=== PATIENT | male | born 1955 | race Caucasian/White ===

== ENCOUNTER 2019-10-17 07:31 | Inpatient (IN) | payer MEDICAID, MEDICARE ==
[~2019-10-17] VITALS: Ht 165.1 cm; Wt 79.4 kg
[2019-10-17 07:33] VITALS: Ht 165.1 cm; Wt 79.4 kg
[2019-10-17 09:00] LABS: BASOPHIL % 0.5 % (0-2); PLATELET COUNT 140 x10^3mcL (130-400)
[2019-10-17 09:03] LABS: RED CELL DISTRIBUTION WIDTH 15.5 % (11.5-14.5)
[2019-10-17] MEDS ORDERED: PLAVIX75 M1 PO (09:19)
[2019-10-17] MEDS ORDERED: LASIX20 MG (09:20)
[2019-10-17] MEDS ORDERED: JANUVIA50 M1 PO (09:21)
[2019-10-17] MEDS ORDERED: COREG3.125 MG (09:22)
[2019-10-17] MEDS ORDERED: LIPITOR20 MG (09:22)
[2019-10-17 09:24] LABS: ALBUMIN 3.1 g/dL (3.4-5.0); BILIRUBIN TOTAL 0.6 mg/dL (0.20-1.00); CALCIUM 8.8 mg/dL (8.5-10.1); CARBON DIOXIDE 28.8 mmol/L (21-32); CREATININE SERUM 1.4 mg/dL (0.7-1.3); POTASSIUM SERUM 3.5 mmol/L (3.5-5.1); TOTAL PROTEIN, SERUM 6.7 g/dL (6.4-8.2)
[2019-10-17] MEDS ORDERED: ASPIRIN CHILDRE81 MG PO (09:24)
[2019-10-17] MEDS ORDERED: ALDACTONE25 MG (09:24)
[2019-10-17 09:53] LABS: microscopic required? NO
[2019-10-17 10:34] LABS: PHOSPHOROUS 3.2 mg/dL (2.5-4.9)
[2019-10-17 10:35] LABS: CHOLESTEROL/HDL RATIO 2.4
[2019-10-17 10:35] LABS: urine erythrocyte NEGATIVE (NEGATIVE)
[2019-10-17 10:43] LABS: T3 TOTAL 0.94 ng/mL
[2019-10-17 10:44] LABS: FREE T4 1.29 ng/dL (0.76-1.46); T4(THYROXINE) 8.7 ug/dL (4.7-13.3)
[2019-10-17 10:51] LABS: AMPHETAMINE QUAL UR NONE DETECTED (See below)
[2019-10-17 12:09] VITALS: BP 94/67
[2019-10-17 14:17] VITALS: BP 97/66
[2019-10-17 16:42] VITALS: BP 105/65
[2019-10-17 20:12] VITALS: BP 88/55
[2019-10-17 22:31] VITALS: BP 92/55
[2019-10-18] VITALS (7 sets, daily range): BP systolic 84–94; BP diastolic 50–65
[2019-10-18 09:00] LABS: BASOPHIL % 0.4 % (0-2); PLATELET COUNT 139 x10^3mcL (130-400)
[2019-10-18 09:36] LABS: RED CELL DISTRIBUTION WIDTH 15.4 % (11.5-14.5)
[2019-10-18 09:37] LABS: CALCIUM 8.5 mg/dL (8.5-10.1); CARBON DIOXIDE 28.8 mmol/L (21-32); CREATININE SERUM 1.4 mg/dL (0.7-1.3); POTASSIUM SERUM 4.1 mmol/L (3.5-5.1)
[2019-10-19] VITALS (12 sets, daily range): BP systolic 90–105; BP diastolic 51–69
[2019-10-19 11:02] LABS: BASOPHIL % 0.2 % (0-2)
[2019-10-19 11:05] LABS: CALCIUM 8.4 mg/dL (8.5-10.1); CARBON DIOXIDE 27.7 mmol/L (21-32); CHLORIDE SERUM 106 mmol/L (98-107); CREATININE SERUM 1.2 mg/dL (0.7-1.3); GFR1 > 60 mL/min; GLUCOSE SERUM 92 mg/dL (74-106); POTASSIUM SERUM 4.3 mmol/L (3.5-5.1); SODIUM SERUM 140 mmol/L (136-145)
[2019-10-19 11:07] LABS: PLATELET COUNT 121 x10^3mcL (130-400); RED CELL DISTRIBUTION WIDTH 15.5 % (11.5-14.5)
[2019-10-19 21:18] LABS: APPEARANCE FLUID HAZY; COLOR FLUID YELLOW; LYMPHOCYTE FLUID 87 %; MONOCYTE FLUID 10 %; RBC FLUID 573 /cumm; SOURCE FLUID PLEURAL; WBC FLUID 40 /cumm
[2019-10-20 05:07] VITALS: BP 98/63
[2019-10-20 08:50] VITALS: BP 97/66
[2019-10-20 09:18] LABS: BASOPHIL % 0.2 % (0-2)
[2019-10-20 09:25] LABS: PLATELET COUNT 129 x10^3mcL (130-400); RED CELL DISTRIBUTION WIDTH 15.7 % (11.5-14.5)
[2019-10-20 09:26] LABS: CALCIUM 8.8 mg/dL (8.5-10.1); CARBON DIOXIDE 28.1 mmol/L (21-32); CREATININE SERUM 1.4 mg/dL (0.7-1.3); MAGNESIUM 2.1 mg/dL (1.8-2.4); POTASSIUM SERUM 4.5 mmol/L (3.5-5.1)
[2019-10-20 10:08] VITALS: BP 97/66
[2019-10-20 13:01] VITALS: BP 103/73
[2019-10-20 17:07] VITALS: BP 95/67
[2019-10-20 20:55] VITALS: BP 91/58
[2019-10-21 05:51] VITALS: BP 90/54
[2019-10-21 06:15] VITALS: BP 94/62
[2019-10-21 07:17] VITALS: BP 89/63
[2019-10-21 12:21] VITALS: BP 89/63
[2019-10-21 12:44] VITALS: BP 103/65
== END 2019-10-21 13:37 | disposition home health service (06) | DRG 139 ==
LOC: ED 07:31 → MU 10:18 → DU 10:18 → MU 10-20 15:36
PROVIDERS: Emergency Medicine; ADMIT Family Medicine
PROC: 0W993ZZ Drainage of Right Pleural Cavity, Percutaneous Approach (ICD-10-PCS; principal; 2019-10-17)
DX: J18.9 Pneumonia, unspecified organism (principal); J96.01 Acute respiratory failure with hypoxia; N17.0 Acute kidney failure with tubular necrosis; E44.1 Mild protein-calorie malnutrition; I50.22 Chronic systolic (congestive) heart failure; I11.0 Hypertensive heart disease with heart failure; E11.9 Type 2 diabetes mellitus without complications; I25.10 Atherosclerotic heart disease of native coronary artery without angina pectoris; J44.9 Chronic obstructive pulmonary disease, unspecified; Z88.4 Allergy status to anesthetic agent; Z88.0 Allergy status to penicillin; Z79.899 Other long term (current) drug therapy; Z79.82 Long term (current) use of aspirin; Z95.0 Presence of cardiac pacemaker
CPT/HCPCS: 32555; 82962; 84439; 97112-GP; 97116-GP; 97530-GP; C1729; G0378; J0456; J1815; J1940; J2405; J7030; J7626; Q0092

== ENCOUNTER 2019-12-15 11:12 | Inpatient (IN) | payer MEDICAID, MEDICARE, SELFPAY ==
[~2019-12-15] VITALS: Ht 170.2 cm; Wt 69.4 kg
[~2019-12-15 11:12] MED LIST: ALDACTONE25 MG; ASPIRIN CHILDRE81 MG PO; COREG3.125 MG; JANUVIA50 M1 PO; L20 PO; LASIX20 MG; LEVAQUIN500 M1 PO; LIPITOR20 MG; PLAVIX75 M1 PO
--- NOTE | 2019-12-15 11:12 | NUR ---
CALLED TO TENT TO SCREEN PT. PT WEARING MASK. PT STATES HE HAS COPD & C/O "FREEZING IN MY LUNGS." C/O CHILLS, SWEATS, BODY ACHES, MARCUM, FATIGUE, RUNNY NOSE, SORE THROAT, COUGH, SOB "EVEN WITH OXYGEN", PAIN ACROSS LOWER RIBS/UPPER ABDOMEN W/ BREATHING, & "STABBING IN FINGERS & FEET." PT THINKS HIS "LUNGS MIGHT BE FULL OF TOO MUCH FLUID" FROM "TOO MUCH SALT." HX OR, HX DM & NEUROPATHY, HX COPD. WOKE UP W/ S/S TODAY. PT UNSURE IF HE HAS A FEVER, DENIES LOSS OF TASTE/LOSS OF SMELL, & DENIES N/V/D. DENIES RECENT TRAVEL. DENIES COVID EXPOSURE. STATES TESTED (-) "A FEW MONTHS AGO." C/O VISUAL IMPAIRMENT, WEARING LARGE DARK GLASSES. ORAL TEMP=98.3, HR PER PLETH=80, ROOM AIR O2 SAT=97%. I ASSISTED PT VIA ER SIDE ENTRANCE TO ROOM OB & PLACED HIM IN COVID ISOLATION. ORAL TEMP=98.8, HR PER PLETH=80, ROOM AIR PULSE OX=97%. DPIBWK=609#. I RESPONDED WEARING FULL PPE (MINUS GOWN, OUTSIDE).
--- NOTE | 2019-12-15 11:36 | NUR ---
ARRIVES TO ER DUE TO FEVER, CHILLS, SHORTNESS OF BREATH. DR. KIRK AT BEDSIDE MEDICAL SCREENING EVALUATION IN PROGRESS.
--- NOTE | 2019-12-15 12:28 | NUR ---
UNABLE TO START IV, OTHER NURSING STAFF CONSULTED TO ATTEMPT A TRY.
[2019-12-15 12:37] LABS: BASOPHIL % 0.6 % (0-2)
[2019-12-15 12:38] LABS: PLATELET COUNT 125 x10^3mcL (130-400)
[2019-12-15 13:16] LABS: CALCIUM 8.6 mg/dL (8.5-10.1); CARBON DIOXIDE 28.2 mmol/L (21-32); CHLORIDE SERUM 106 mmol/L (98-107); CREATININE SERUM 1.1 mg/dL (0.7-1.3); GFR1 > 60 mL/min; GLUCOSE SERUM 96 mg/dL (74-106); POTASSIUM SERUM 4.2 mmol/L (3.5-5.1); SODIUM SERUM 142 mmol/L (136-145)
[2019-12-15 13:27] LABS: ALBUMIN 3.2 g/dL (3.4-5.0); ALKALINE PHOSPHATASE 44 U/L (46-116); ALT/SGPT 16 U/L (16-63); AST/SGOT 8 U/L (15-37); BILIRUBIN TOTAL 0.28 mg/dL (0.20-1.00); LACTIC DEHYDROGENASE (LDH) 236 U/L (100-190); TOTAL PROTEIN, SERUM 7.1 g/dL (6.4-8.2)
[2019-12-15 13:28] LABS: C REACTIVE PROTEIN 0.5 mg/dL (<=0.9)
--- NOTE | 2019-12-15 14:55 | NUR ---
AWAKE. ALERT. COOPERATIVE. VITAL SIGNS STABLE. SKIN COOL. DRY/
[2019-12-15 14:56] LABS: microscopic required? NO
[2019-12-15 15:39] LABS: UA SPECIFIC GRAVITY 1.025 (1.005-1.035); urine erythrocyte NEGATIVE (NEGATIVE)
--- NOTE | 2019-12-15 15:43 | NUR ---
URINAL EMPTIED OF 600 CC CLEAR URINE.
--- NOTE | 2019-12-15 16:21 | NUR ---
ADMITTING RESIDENT AT BEDSIDE TALKING TO PT REGARDING UP COMING ADMISSION.
[2019-12-15 17:38] LABS: MAGNESIUM 2.1 mg/dL (1.8-2.4); PHOSPHOROUS 4.5 mg/dL (2.5-4.9)
[2019-12-15 17:40] LABS: CHOLESTEROL/HDL RATIO 1.9
--- NOTE | 2019-12-15 17:45 | NUR ---
DINNER TRAY OFFERED. ASSST WITH MEAT CUTTING.
[2019-12-15 17:46] LABS: FREE T4 1.29 ng/dL (0.76-1.46); FREE THYROXINE INDEX 3.2 ug/dL (1.4-4.5); T4(THYROXINE) 8.8 ug/dL (4.7-13.3)
[2019-12-15 18:09] LABS: T3 TOTAL 1.27 ng/mL
[2019-12-15 18:28] LABS: AMPHETAMINE QUAL UR NONE DETECTED (See below)
--- NOTE | 2019-12-15 18:55 | NUR ---
ATE DINNER WELL. ALERT. VITAL SIGNS STABLE.
--- NOTE | 2019-12-15 19:45 | NUR ---
PATIENT LYING IN BED WITH EYES OPEN, NO DISTRES NOTED AT THIS TIME, WILL CONTINUE TO MONITOR.
--- NOTE | 2019-12-15 20:08 | NUR ---
REPORT GIVEN TO CHELSEA SHEN, EXT. [phone], ALL QUESTIONS ADDRESSED. CHELSEA STATES, "ROOM NO READY" AWAITING CALL BACK.
--- NOTE | 2019-12-15 21:36 | NUR ---
PATIENT LYING IN BED AWAKE, NO DISTRESS NOTED AT THIS TIME, CALL LIGHT WITHIN REACH, WILL CONTINUE TO MONITOR.
--- NOTE | 2019-12-15 22:59 | NUR ---
PATIENT ARRIVED FROM ER VIA GURNEY, ACCOMPANIED BY TWO NURSES.
[2019-12-15 23:12] VITALS: BP 93/59
--- NOTE | 2019-12-16 00:35 | NUR ---
PATIENT RESTING IN BED, A/O X4, VERBALLY RESPONSIVE, BLIND BILATERALLY, DENIES DIZZINESS AND HEADACHE. BREATHING E/U, ON 2L NC, SPO2 97%, STATES THAT HE FEELS SOB AND REQUESTS FOR RT, WILL NOTIFY RT, ON DROPLET/CONTACT PRECAUTIONS FOR R/O COVID, COVID TEST SWAB AND MRSA SWAB TAKEN. TELE # 22, SINUS RHYTHM, HR 79, DENIES CHEST PAIN. ABD SOFT AND ROUND, C/O OF 9/10 ABD PAIN AND NAUSEA, WILL GIVE PAIN MEDICATION PRN AND ZOFRAN PRN PER EMAR. +2 PITTING EDEMA NOTED IN BLE. DISCOLORATION AND DRY/FLAKY SKIN TO BLE. IV R HAND INTACT, FLUSHED AND SALINE LOCKED. ORIENTED PATIENT TO SURROUNDINGS AND DEVICES, CALL LIGHT WITHIN REACH, BED IN LOWEST POSITION. WILL CONTINUE TO MONITOR.
--- NOTE | 2019-12-16 00:40 | NUR ---
RT SAW PATIENT AND GAVE BREATHING TREATMENT, PATIENT RESTING IN BED, BREATHING E/U, DENIES SOB, SPO2 100% ON 2L NC. CALL LIGHT WITHIN REACH, WILL CONTINUE TO MONITOR.
[2019-12-16 00:44] VITALS: BP 113/80
--- NOTE | 2019-12-16 00:50 | NUR ---
PATIENT'S PD MACHINE BEEPING, SHOWS MESSAGE THAT TREATMENT IS BEING DELAYED. WILL CALL DIALYSIS NURSE CRISTINA.
--- NOTE | 2019-12-16 00:50 | NUR ---
PATIENT RESTING IN BED, A/O X4, VERBALLY RESPONSIVE, BLIND BILATERALLY, DENIES DIZZINESS AND HEADACHE. BREATHING E/U, ON 2L NC, SPO2 100%, ON DROPLET/CONTACT PRECAUTIONS FOR R/O COVID, COVID TEST SWAB AND MRSA SWAB TAKEN. TELE # 22, SINUS RHYTHM, HR 79, DENIES CHEST PAIN. ABD SOFT AND ROUND, C/O OF 9/10 ABD PAIN AND NAUSEA, WILL GIVE PAIN MEDICATION PRN AND ZOFRAN PRN PER EMAR. +2 PITTING EDEMA NOTED IN BLE. DISCOLORATION AND DRY/FLAKY SKIN TO BLE. IV R HAND INTACT, FLUSHED AND SALINE LOCKED. ORIENTED PATIENT TO SURROUNDINGS AND DEVICES, CALL LIGHT WITHIN REACH, BED IN LOWEST POSITION. WILL CONTINUE TO MONITOR.
--- NOTE | 2019-12-16 01:04 | NUR ---
DIALYSIS NURSE CRISTINA STATED TO CLICK THE 'RESUME' BUTTON AND I DID SO. PATIENT'S PD SESSION HAS BEEN RESUMED WITH NO FURTHER BEEPING @ THIS TIME.
--- NOTE | 2019-12-16 01:05 | NUR ---
RT SAW PATIENT, PATIENT IS CURRENTLY ON 7L SIMPLE MASK, SPO2 94%.
--- NOTE | 2019-12-16 03:45 | NUR ---
PATIENT IS CURRENTLY ON A REGULAR DIET, A1C 5.6, AND PAST HX OF DIABETES. THERE ARE NO ACCUCHECKS ORDERED @ THIS TIME. MADE A NOTE REQUESTING RESIDENT PHYSICIAN IF THEY WILL LIKE TO PLACE ORDER FOR ACCUHCECKS OR DIABETIC DIET. WILL WAIT TO HEAR BACK.
--- NOTE | 2019-12-16 05:14 | NUR ---
CALLED RESIDENT PHYSICIAN, DR. ROBERT MADE AWARE OF PATIENT'S CURRENT REGULAR DIET, PAST HX OF DM AND A1C OF 5.6. ASKED IF SHE WILL LIKE TO CHANGE DIET ORDER TO DIABETIC AND/OR PLACE ORDER FOR ACCUCHECKS. SHE STATED THAT SHE WILL ONLY THE ORDER TO CHANGE TO [facility] DIET AT THIS TIME, NO ACCUCHECKS.
[2019-12-16 06:04] VITALS: BP 91/59
--- NOTE | 2019-12-16 06:32 | NUR ---
PATIENT RESTING IN BED WITH EYES CLOSED. EVEN CHEST RISE AND FALL, ON 2L NC, SPO2 96%, SHOWS NO SIGN OF SOB, PAIN OR DISTRESS, ON DROPLET/CONTACT PRECAUTIONS FOR R/O COVID, COVID SWAB TAKEN EARLIER DURING SHIFT. CALL LIGHT WITHIN REACH, BED IN LOWEST POSITION. ALL NEEDS MET, CALL LIGHT WITHIN REACH, SAFETY PRECAUTIONS AND DROPLET PRECAUTIONS MAINTAINED THROUGHOUT SHIFT. WILL ENDORSE CARE TO DAY NURSE.
[2019-12-16 07:15] LABS: BASOPHIL % 0.2 % (0-2)
[2019-12-16 07:22] LABS: PLATELET COUNT 121 x10^3mcL (130-400); RED CELL DISTRIBUTION WIDTH 15.7 % (11.5-14.5)
--- NOTE | 2019-12-16 07:30 | NUR ---
PT IS AAOX4. TELE [address] READING NSR WITH AVB. PT HAS BLE 2_ EDEMA WITH WEAK PEDAL PULSES. SKIN WARM. N/C AT 2LPM IN PLACE. RESP EVEN AND UNLABORED. LUNG SOUNDS DIMINISHED BILATERAL BASES. NO COUGH NOTED. DENIES PAIN. IV CATH TO RH, FLUSHED AND PATENT. SITE WNL. CALL LIGHT WITHIN REACH. BED IN LOWEST POSITION.
[2019-12-16 07:39] LABS: ALKALINE PHOSPHATASE 34 U/L (46-116); ALT/SGPT 14 U/L (16-63); AST/SGOT 11 U/L (15-37); C REACTIVE PROTEIN 0.6 mg/dL (<=0.9); CALCIUM 7.9 mg/dL (8.5-10.1); CARBON DIOXIDE 29.7 mmol/L (21-32); CHLORIDE SERUM 105 mmol/L (98-107); CREATININE SERUM 1.2 mg/dL (0.7-1.3); GFR1 > 60 mL/min; GLUCOSE SERUM 85 mg/dL (74-106); POTASSIUM SERUM 4.1 mmol/L (3.5-5.1); SODIUM SERUM 144 mmol/L (136-145)
[2019-12-16 07:40] LABS: ALBUMIN 2.7 g/dL (3.4-5.0)
[2019-12-16 08:47] VITALS: BP 93/70
--- NOTE | 2019-12-16 10:30 | NUR ---
NORCO PO PRN GIVEN FOR ABDOMINAL PAIN 11/10. EXTRA FLUIDS GIVEN AND ENCOURAGED. PT EDUCATED TO TURN AND REPOSITION IN BED FREQUENTLY AND Q 2 HOURS FOR SKIN MAINTENANCE. PT REFUSED TO TAKE SCHEDULED PLAVIX PO. PT STATED HE IS NOT SUPPOSED TO TAKE IT AT THE SAME TIME ASA AND THAT HE TAKES IT AT NIGHT. DR. SANTILLAN WILL BE MADE AWARE. REMAINING SCHEDULED MEDS GIVEN AND TOLERATED WELL. N/C AT [address] NO RESP DISTRESS NOTED. CALL LIGHT WITHIN REACH.
--- NOTE | 2019-12-16 11:00 | NUR ---
REPORTED TO DR. SANTILLAN THAT PT REFUSED MORNING DOSE OF PLAVIX. PT WOULD LIKE TO TAKE IT AT 1700. DR. SANTILLAN GAVE ORDER, CX TIME OF PLAVIX DOSE TO 1700 DAILY. ORDER CARRIED OUT AND PT MADE AWARE.
[2019-12-16 12:12] VITALS: BP 97/72
[2019-12-16 12:27] VITALS: Ht 170.2 cm; Wt 69.4 kg
--- NOTE | 2019-12-16 13:29 | NUR ---
Discount pharmacy card and list to low cost medical clinics given to Norma Sood and she will hand it to patient.
--- NOTE | 2019-12-16 13:39 | NUR ---
PT RESTING, RESP EVEN AND UNLABORED. NO DISTRESS NOTED. CALL LIGHT WITHIN REACH.
[2019-12-16 16:53] VITALS: BP 91/63
--- NOTE | 2019-12-16 18:01 | NUR ---
NORCO GIVEN FOR BURNING ABDOMINAL PAIN 12/10. PT REPOSITIONED FOR COMFORT. RESP EVEN AND UNLABORED. WILL CONTINUE TO MONITOR.
--- NOTE | 2019-12-16 19:24 | NUR ---
ENDORSED ALL CARE TO SAHRA SHEN.
[2019-12-16 21:25] VITALS: BP 89/58
--- NOTE | 2019-12-16 21:46 | NUR ---
PT RECIEVED AAO REG RESP NO SOB,ABDO IS SOFT WITH ACTIVE BOWEL SOUNDS,KEPT CLEAN AND DRY TO TOUCH,V/S STABLE,PT BLIND TO BOTH EYES,PT REORIENT TO HIS SURROUNDING,CALL LIGHT EASY REACHED AND WILL CONTINUE TO MONITOR.
--- NOTE | 2019-12-17 00:05 | NUR ---
PT SLEEPING SOUNDLY AND WILL CONTINUE TO MONITOR.
--- NOTE | 2019-12-17 02:44 | NUR ---
PT WOKE UP WITH C/O OF NAUSEAO VOMITING,PT WAS GIVEN 4 MG IV ZOFRAN ORDER AND WILL CONTINUE TO MONITOR.
--- NOTE | 2019-12-17 06:17 | NUR ---
PT HAD A RESTFUL NIGHT NO CHANGE AT THIS TIME,KEPT CLEAN AND DRY TO TOUCH AND WILL CONTINUE TO MONITOR.
[2019-12-17 06:24] VITALS: BP 92/65
--- NOTE | 2019-12-17 07:30 | NUR ---
PT IS AAOX4. TELE [address] READING NSR. PT HAS PACEMAKER WITH DEFIBRILATOR. BLE TRACE EDEMA. N/C IN PLACE AT 2LPM. NO COUGH. NO RESP DISTRESS NOTED. DENIES PAIN. IV CATH TO R HAND IN PLACE. BED IN LOWEST POSITION. CALL LIGHT WITHIN REACH.
--- NOTE | 2019-12-17 08:57 | NUR ---
RECEIVED ORDER FOR US GUIDED THORACENTESIS. PATIENT HAS BEEN ON PLAVIX AND ASA DAILY, LAST DOSES YESTERDAY. PER RADIOLOGIST DR RIDER IF PATIENT IS NOT DESATURATING OR IN DISTRESS HE WOULD LIKE TO HOLD THE PLAVIX AND ASA AND PLAN TO DO THE THORACENTESIS SATURDAY. SPOKE WITH PATIENT'S RESIDENTS WHO SAW HIS THIS AM ABOUT THE PLAN TO HOLD ASA AND PLAVIX AND WAIT FOR SATURDAY IF POSSIBLE. ALSO SPOKE WITH CHARGE NURSE JIMMIE. WENT TO PATIENT'S ROOM AND EXPLAINED THE PROCESS TO HIM. HE IS AGREEABLE TO WAITING AND SAYS HE WOULD PREFER TO WAIT UNTIL IT IS SAFE TO PROCEED, THAT HE DOES WELL WITH BREATHING TREATMENTS AT THIS POINT IN TIME. I ALSO NOTIFIED THE PATIENT THAT IF HE EXPERIENCES A CHANGE FOR THE WORSE IN HIS STATUS TO PLEASE NOTIFY THE NURSE AND AN ON-CALL RADIOLOGIST CAN COME IN OVER THE WEEKEND TO PERFORM A THORACENTESIS IF URGENTLY NEEDED. PATIENT IS AGREEABLE WITH THIS PLAN. ALSO GAVE SUGGESTION TO RESIDENTS FROM DR RIDER THAT IF ANTICOAGULATION NEEDED IN THE INTERIM HEPARIN IS ADVISABLE IT CAN BE DC'D 6-8 HRS PRIOR TO A PLANNED PROCEDURE.
[2019-12-17 09:49] VITALS: BP 103/66
--- NOTE | 2019-12-17 10:00 | NUR ---
NORCO PO PRN GIVEN FOR ABDOMINAL PAIN 11/10. SCHEDULED MEDS GIVEN AND TOLERATED WELL. HEPARIN AND ASA HELD DUE TO PENDING PROCEDURE. WILL CONTINUE TO MONITOR.
--- NOTE | 2019-12-17 10:45 | NUR ---
CLARIFIED WITH ANTOINETTE SHEN THAT PT'S PROCEDURE WILL NOT BE UNTIL SATURDAY. PT HEPARIN SQ AND ASA GIVEN AT THIS TIME.
--- NOTE | 2019-12-17 11:00 | NUR ---
PT RECEIVED NEW ORDER FOR FLUID RESTRICTION 1200ML/DAY. PT EDUCATED ON BENEFITS OF FLUID RESTRICTION. PT VERBALIZED UNDERSTANDING.
--- NOTE | 2019-12-17 12:03 | NUR ---
NORCO PO PRN GIVEN FOR ABDOMINAL PAIN 11/10. SCHEDULED MEDS GIVEN AND TOLERATED WELL. HEPARIN AND ASA HELD DUE TO PENDING PROCEDURE. WILL CONTINUE TO MONITOR.
[2019-12-17 12:21] LABS: BASOPHIL % 0.2 % (0-2)
[2019-12-17 12:22] LABS: PLATELET COUNT 120 x10^3mcL (130-400); RED CELL DISTRIBUTION WIDTH 15.7 % (11.5-14.5)
--- NOTE | 2019-12-17 12:58 | NUR ---
SCHEDULED MED GIVEN AND TOLERATED WELL. PT DENIES PAIN. NO RESP DISTRESS NOTED. CALL LIGHT WITHIN REACH.
[2019-12-17 13:52] VITALS: BP 95/64
--- NOTE | 2019-12-17 14:28 | NUR ---
RECEIVED ORDER FOR DR. SANTILLAN, BMP AND CBC FOR 12/17/11. ORDER NOTED AND CARRIED OUT.
--- NOTE | 2019-12-17 16:44 | NUR ---
PT INFORMED ABOUT THORACENTESIS PROCEDURE BY DR. DEAL AND DR. SANTILLAN. INFORMED CONSENT SIGNED BY PT AND PLACED IN PT'S CHART. LASIX IVP GIVEN. PT DENIES PAIN AT THIS TIME. PT SITTING UP IN BEDSIDE CHAIR WITH TRAY IN FRONT OF HIM. WILL CONTINUE TO MONITOR.
[2019-12-17 17:40] VITALS: BP 96/67
--- NOTE | 2019-12-17 18:12 | NUR ---
RESP EVEN AND UNLABORED. PT TITRATED OF N/C AND ON R/A. O2 SAT 97%. NO SOB OR RESP DISTRESS NOTED. IV CATH TO RH INTACT. S/L. PT DENIES PAIN. CALL LIGHT WITHIN REACH. BED IN LOWEST POSITION. WILL ENDORSE ALL CARE TO NOC RN.
--- NOTE | 2019-12-17 18:50 | NUR ---
NORCO PO PRN GIVEN FOR GENERALIZED PAIN 11/10. WILL ENDORSE ALL CARE TO NOC SHIFT RN.
--- NOTE | 2019-12-17 20:00 | NUR ---
PT RECEIVED AAO REG RESP NO SOB LEGALLY BLIND TO BOTH EYE, ABDO IS SOFT WITH ACTIVE BOWEL SOUNDS,HL TO THE RT HAND SITE PATENT AND INTACT,PT USES THE URINAL,HOB,AILEEN LOWER EXTRE TRACES OF EDEMA AND DISCOLORATION PULSES ARE PALPABLE,BED IN THE LOW POSITION AND LOCKED,CALL LIGHT EASY REACHED AND WILL CONTINUE TO MONITOR.
[2019-12-17 21:42] VITALS: BP 93/59
--- NOTE | 2019-12-18 00:18 | NUR ---
RECUEVED PATIENT VIA BED FROM ICU,REG RESP NO SOB IN R/A SAT 95%,IV INFUDING WELL SITE PATENT AND INTACT,BED IN THE LOW POSITION AND LOCKED AND WILL CONTTINUE TO MONITOR.
--- NOTE | 2019-12-18 05:58 | NUR ---
PT HAD A RESTING NIGHT NO CHANGE AT THIS TIME,WILL CONTINUE TO MONITOR.
[2019-12-18 06:04] VITALS: BP 103/65
--- NOTE | 2019-12-18 07:00 | NUR ---
RECIEVED PT RESTING IN BED WITH NO C/O PAIN OR DISTRESS. PT BLIND BILATERALLY AND ALL NEEDS ARE BEING MET. TELE #22 CONNECTED TO PT AND HE DENIES ANY CP OR PRESSURE. BLE TRACE EDEMA NOTED. PT FOUND ON 2 LPM/NC WITH NO C/O SOB. SALINE LOCK TO RIGHT HAND, CDI AND PATENT. SAFETY PRECAUTIONS IN PLACE, CALL LIGHT WITHIN RECH, WILL MONITOR.
[2019-12-18 08:00] VITALS: BP 97/64
[2019-12-18 12:33] VITALS: BP 92/61
--- NOTE | 2019-12-18 15:42 | NUR ---
PT STABLE WITH NO C/O PAIN, DISTRESS, OR SOB. ASPIRATION PRECAUTIONS IN PLACE, ALL SAFETY PRECAUTIONS IN PLACE, CALL LIGHT WITHIN REACH, WILL CONTINUE TO MONITOR.
[2019-12-18 17:06] VITALS: BP 99/70
--- NOTE | 2019-12-18 18:14 | NUR ---
PT RESTING IN BED WITH NO C/O PAIN OR DISTRESS. PT BLIND BILATERALLY AND ALL NEEDS WERE ANTICIPATED AND MET ALL SHIFT. TELE #22 CONNECTED TO PT AND HE DENIES ANY CP OR PRESSURE. BLE TRACE EDEMA NOTED. PT ON 2 LPM/NC WITH NO C/O SOB. SALINE LOCK TO RIGHT HAND, CDI AND PATENT. SAFETY PRECAUTIONS IN PLACE, ASPIRATION PRECAUTIONS IN PLACE, CALL LIGHT WITHIN REACH, WILL ENDORSE CARE TO NIGHT NURSE.
--- NOTE | 2019-12-18 19:30 | NUR ---
PT RECIEVED FROM DAY NURSE. PT RESTING IN BED AT THIS TIME. PT A/O X4, CALM AND COOPERATIVE. TELE 22, NSR. PT DENIES CP, NV, DIZZINESS, OR PALPATATIONS. PALPABLE PULSES, EDEMA NOTED TO BLE. ELEVATED WITH PILLOWS. BREATHING E/U ON 2L NC. DENIES SOB AT THIS TIME. ABD SOFT AND ROUND, DENIES PAIN TO PALPATION. IV TO R HAND, CDI. BED AT LOWEST POSITION. CALL LIGHT WITHIN REACH. WILL CONTINUE TO MONITOR.
--- NOTE | 2019-12-18 21:40 | NUR ---
SPOKE TO DR LANDIN, PER MD NOLASCO TO GIVE HEPERIN SQ. PLAVIX ON HOLD AT THIS TIME.
[2019-12-18 22:34] VITALS: BP 104/72
--- NOTE | 2019-12-19 | NUR ---
PT RESTING IN BED AT THIS TIME. DENIES PAIN OR DISCOMFORT. PT BREATHING E/U ON 2L NC. NO S/S OF ACUTE DISTRESS AT THIS TIME. WILL CONTINUE TO MONITOR.
[2019-12-19 05:31] VITALS: BP 91/64
--- NOTE | 2019-12-19 07:28 | NUR ---
PT RESTING IN BED AT THIS TIME. DENIES PAIN OR DISCOMFORT. PT BREATHING E/U ON 2L NC. SECOND COVID SWAB DONE AT THIS TIME. NO S/S OF ACUTE DISTRESS AT THIS TIME. ALL NEEDS AND CONCERNS ADDRESSED THIS SHIFT. WILL CONTINUE TO MONITOR.
[2019-12-19 09:26] VITALS: BP 108/74
--- NOTE | 2019-12-19 12:30 | NUR ---
PT STABLE RESTING IN BED WITH ASPIRATION PRECAUTIONS IN PLACE. ALL NEEDS BEING MET. CALL LIGHT WITHIN RECH, WILL MONITOR.
--- NOTE | 2019-12-19 18:16 | NUR ---
PT RESTING IN BED WITH NO C/O PAIN OR DISTRESS. PT BLIND BILATERALLY AND ALL NEEDS WERE MET ALL SHIFT. TELE #22 CONNECTED TO PT AND HE DENIES ANY CP OR PRESSURE. BLE TRACE EDEMA NOTED. PT ON 2 LPM/NC WITH NO C/O SOB. SALINE LOCK TO RIGHT HAND, CDI AND PATENT. SAFETY PRECAUTIONS IN PLACE, CALL LIGHT WITHIN REACH, WILL ENDORSE CARE TO NIGHT NURSE.
[2019-12-19 20:37] VITALS: BP 102/70
--- NOTE | 2019-12-19 21:00 | NUR ---
RECEIVED PT IN BED AWAKE AND RESTING QUIETLY. HE IS ALERT,ORIENTED X4. HE DENIED HAVING SOB. HE IS ON 2L N/C. HE HAS NO C/O PAIN AT THIS TIME. W/HL TO RT HAND INTACT. CALL LIGHT W/IN REACH.
--- NOTE | 2019-12-20 | NUR ---
PT ASLEEP COMFORTABLY AT THIS TIME. NO RESP. DISTRESS.
[2019-12-20 04:59] VITALS: BP 98/64
--- NOTE | 2019-12-20 05:11 | NUR ---
PT SLEPT FAIRLY. HE HAD NO C/O PAIN. NO EPISODE OF SOB OR RESP. DISTRESS. HE REMAINS ALERT AND ORIENTED X4. ALL NEEDS ATTENDED TO.
--- NOTE | 2019-12-20 07:00 | NUR ---
RECIEVED PT RESTING IN BED WITH NO C/O PAIN OR DISTRESS. PT BLIND BILATERALLY AND ALL NEEDS ARE BEING MET. TELE #22 CONNECTED TO PT AND HE DENIES ANY CP OR PRESSURE. BLE TRACE EDEMA NOTED. PT FOUND ON 2 LPM/NC WITH NO C/O SOB. SALINE LOCK TO RIGHT HAND, CDI AND PATENT. SAFETY PRECAUTIONS IN PLACE, CALL LIGHT WITHIN REACH, WILL CONTINUE TO MONITOR.
[2019-12-20 07:14] LABS: CARBON DIOXIDE 28.2 mmol/L (21-32); CHLORIDE SERUM 104 mmol/L (98-107); CREATININE SERUM 1.2 mg/dL (0.7-1.3); GFR1 > 60 mL/min; GLUCOSE SERUM 81 mg/dL (74-106); MAGNESIUM 2.3 mg/dL (1.8-2.4); PHOSPHOROUS 3.3 mg/dL (2.5-4.9); SODIUM SERUM 140 mmol/L (136-145)
[2019-12-20 07:21] LABS: BASOPHIL % 0.3 % (0-2); PLATELET COUNT 111 x10^3mcL (130-400); RED CELL DISTRIBUTION WIDTH 15.4 % (11.5-14.5)
[2019-12-20 09:16] VITALS: BP 104/70
--- NOTE | 2019-12-20 12:45 | NUR ---
PT STABLE RESTING IN BED WITH ASPIRATION PRECAUTIONS IN PLACE. ALL NEEDS BEING MET. CALL LIGHT WITHIN RECH, WILL MONITOR.
[2019-12-20 14:03] VITALS: BP 91/66
[2019-12-20 17:17] VITALS: BP 111/81
--- NOTE | 2019-12-20 20:08 | NUR ---
RECEIVED PATIENT IN BED AWAKE, ORIENTED X4 WITH NO SIGN OF RESPIRATORY DISTRESS. BREATHING EASY AND NONLABOR SATTING AT 98% RA. TELE#22 NSR WITH 1ST DEGREE AV BLOCK ON MONITOR, DENIES CHESTPAIN. TRACED EDEMA TO BLE NOTED. IV TO RIGHT HAND HEPLOCKED. WILL CONTINUE TO MONITOR. ISOLATION PRECAUTION FOR PUI. CALL LIGHT WITHIN REACH.
[2019-12-20 21:26] VITALS: BP 103/63
[2019-12-21] VITALS (10 sets, daily range): BP systolic 89–102; BP diastolic 49–72
--- NOTE | 2019-12-21 00:05 | NUR ---
APPEAR TO BE SLEEPING WITH EYES CLOSED BREATHING EASY AND NONLABOR. WILL CONTINUE TO MONITOR.
--- NOTE | 2019-12-21 03:32 | NUR ---
AWAKE C/O ABDOMINAL PAIN, TYLENOL 650MG PO GIVEN. WILL CONTINUE TO MONITOR.
--- NOTE | 2019-12-21 05:11 | NUR ---
RELEIF NOTED PER PATIENT AFTER PAIN MEDS WAS GIVEN. CHECKED AT INTERVALS FOR NEEDS AND SAFETY.
[2019-12-21 05:32] LABS: BASOPHIL % 0.9 % (0-2); PLATELET COUNT 126 x10^3mcL (130-400); RED CELL DISTRIBUTION WIDTH 15.2 % (11.5-14.5)
[2019-12-21 05:46] LABS: CALCIUM 8.6 mg/dL (8.5-10.1); CARBON DIOXIDE 31.5 mmol/L (21-32); CREATININE SERUM 1.4 mg/dL (0.7-1.3); MAGNESIUM 2.1 mg/dL (1.8-2.4); PHOSPHOROUS 3.3 mg/dL (2.5-4.9)
--- NOTE | 2019-12-21 08:00 | NUR ---
RECEIVED IN NO RESP. DISTRESS, AWAKE,ALERT AND ORIENTED. VS WNL. HL PATENT. NO C/O PAIN AT THIS TIME. CALL LIGHT WITHIN REACH. WILL CONTINUE WITH PLAN OF CARE.
--- NOTE | 2019-12-21 13:12 | NUR ---
Initial Nutrition Assessment- Myles Pietro Helton RM # [id number], Male Dx: CHF exacerbation, COPD, COVID R/O PMHx: CHF, DM, COPD, VT 4x "a long time ago" per H&P, peripheral neuropathy PSHx: 2 stents, pacemaker Labs: BUN/Cr: 29/1.4H, (12/14) BNP: 386.95H, HctL 40L, TWNL, Cholesterol: 125WNL, LDL: 43 Meds: aspirin, Colace, Lasix, Lipitor, Mucinex, Plavix, Tylenol, Ventolin, Zofran, heparin sodium Diet: NPO for possible thoracentesis, previous date: CCHO PO Intakes: 90% PO intake x 5 logged meals on CCHO diet (now NPO) Ht: 170.18 cm, 67 inches, 5' 7 Wt: 69.4 kg/152.68 lbs BMI: 24 IBW: 148 lbs %IBW: 103% UBW: 232-252 lbs per pt Age: 64 Food Allergies: NKFA Skin: none noted Jasper: 19 Edema: none noted GI: last BM 12/17/19 RD Note (12/21/19): Pt C/O SOB at time of admission, some tingling and loss of sensation reported to upper/lower extremities and ABD pain reported by the pt per H&P, Pt reported a sick contact that had a cough, Pt has a pacemaker and is on 2L 02 at home which he uses at night and sometimes during the day per H&P, pt admits he is a past smoker and has not smoked in a long time, 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 possible COVID-19 vs COPD exacerbation, acute on chronic systolic CHF w/hx of CAD s/p stents, mild KADY with vasomotor nephropathy, ischemic cardiomyopathy, recurrent bilateral pleural effusions, CAD hx of PCI, Hx of HLD, DM w/peripheral neuropathy, 2nd COVID test negative per progress note, thoracentesis scheduled for today (12/20), possible D/C on Saturday per progress note 12/21/2019. Upon visit, pt was resting comfortably. He reported that he wants to be on a CCHO + cardiac diet. The pt reported he does not like the food he is getting because it is greasy. Pt reported he lost 80-100 lbs in the last 12 months due to not receiving the right food where he stays (the food is greasy). Problem with: N/V/D/C: a little n/v reported by patient due to greasy food, but he reported he is eating well Problems with: Chewing/Swallowing: none Current appetite: good appetite Recent wt changes: -80 to 100 lbs in the last year %wt change: -34 to 40% in 12 mo. Vitamin/Supplement: takes omega-3 supplements Special Diet at Home: none, but avoids salty foods Physical activity: walks indoors and outdoors Education: No education provided at this time, thoracentesis procedure was starting Estimated Nutritional Needs Based on IBW of 67.3 kg/148 lbs Energy: 4788-8110 kcal/d (25-30 kcal/kg for CHF, COPD) Protein: 81- 94 g/day (1.2-1.4 g/kg for CHF) Fluid: 1.4-1.9 L/day (for CHF) or per MD Nutrition Diagnosis No nutrition DX at this time. Pt eating well when on PO diet. Intervention/RDN Recommendation(s): 1) Continue PO diet when medically appropriate 2) Continue CCHO diet 3) Recommend adding cardiac diet d/t CHF, VT HX Monitor/Evaluate Goal: Have pt meet at least 75% of estimated nutrient needs when pt is put back on PO diet Monitor: PO intake (once pt on PO diet) ,Labs, Skin integrity, Weights, diet implementation, N/V associated with food F/U as MR on 12/23-
--- NOTE | 2019-12-21 13:39 | NUR ---
Intervention/RDN Recommendation(s): 1) Continue PO diet when medically appropriate 2) Continue CCHO diet 3) Recommend adding cardiac diet d/t CHF, GA HX Pt's nurse was notified and reported she will add CCHO/cardiac diet once procedure is done
--- NOTE | 2019-12-21 14:10 | NUR ---
RT THORACENTESIS COMPLETED, 1600ML OUT
--- NOTE | 2019-12-21 14:12 | NUR ---
RESTING IN NO ACUTE DISTRESS. VS WNL. NO C/O PAIN AT THIS TIME.
[2019-12-21 16:33] LABS: SOURCE FLUID PLEURAL
[2019-12-21 16:34] LABS: APPEARANCE FLUID CLEAR; COLOR FLUID YELLOW; LYMPHOCYTE FLUID 15 %; RBC FLUID 350 /cumm; WBC FLUID 380 /cumm
[2019-12-21 16:35] LABS: MONOCYTE FLUID 4 %
--- NOTE | 2019-12-21 16:37 | NUR ---
RESTING AT THIS TIME. NO DISTRESS NOTED. NO C/O PAIN
--- NOTE | 2019-12-21 18:46 | NUR ---
PT REMAINS IN NO ACUTE DISTRESS, AWAKE AND ALERT. NO CHANGES IN VS. NO C/O PAIN OR DISCOMFORT. VS WNL. CALL LIGHT WITHIN REACH. WILL BE ENDODRSED TO INCOMING SHIFT.
--- NOTE | 2019-12-21 20:08 | NUR ---
PT'S IN BED NO RESP DISTRESS NOTE, TELE NUMBER 22 NSR , HL TO RH PATENT FLUSHING WELL , SKIN WARM TO TOUCH , SOME DISCOLORATION NOTED, TO BILAT LOWER EXTR 2ND TO CHRONIC EDEMA (CHF). CALL LIGHT WITHIN PT'S REACH , WILL CON'T TO MONITOR AND ASSIST PT WITH CARE .
[2019-12-22 05:35] VITALS: BP 90/58
--- NOTE | 2019-12-22 06:18 | NUR ---
NO CHANGES OF CONDITION NOTED , NO REACTION NOTED, TELE NSR SAT 96%.
--- NOTE | 2019-12-22 07:33 | NUR ---
RECEIVED IN NO ACUTE DISTRESS, AWAKE ALERT AND ORIENTED. NO C/O PAIN OR DISCOMFORT AT THIS TIME. HL PATENT. CALL LIGHT WITHIN REACH. WILL CONTINUE WITH PLAN OF CARE.
[2019-12-22 08:27] VITALS: BP 99/62
[2019-12-22 11:48] LABS: BASOPHIL % 0.8 % (0-2)
[2019-12-22 11:49] LABS: PLATELET COUNT 124 x10^3mcL (130-400); RED CELL DISTRIBUTION WIDTH 15.4 % (11.5-14.5)
[2019-12-22 11:58] LABS: CALCIUM 8.4 mg/dL (8.5-10.1); CARBON DIOXIDE 29.3 mmol/L (21-32); CREATININE SERUM 1.3 mg/dL (0.7-1.3); MAGNESIUM 2.1 mg/dL (1.8-2.4); PHOSPHOROUS 3.5 mg/dL (2.5-4.9); POTASSIUM SERUM 3.9 mmol/L (3.5-5.1)
[2019-12-22 12:05] VITALS: BP 108/60
--- NOTE | 2019-12-22 12:34 | NUR ---
PHYSICAL THERAPY NOTE REHAB TX POSTPONED TO NEXT SCHEDULED TX DATE.
--- NOTE | 2019-12-22 13:31 | NUR ---
RESTING IN NO DISTRESS, DENIES ANY DISCOMFORT AT THIS TIME. CALL LIGHT WITHIN REACH.
[2019-12-22 15:52] VITALS: BP 102/62
[2019-12-22 17:59] VITALS: BP 98/63
--- NOTE | 2019-12-22 18:43 | NUR ---
PT HAD A RUN OF VTACH APPROX. 5SEC. DR. VUONG NOTIFIED. SEE ORDERS. PT ASYMPTOMATIC, SITTING AT THE EDGE OF THE BED EATING DINNER. VS STABLE.
[2019-12-22 19:47] VITALS: BP 103/64
--- NOTE | 2019-12-22 19:48 | NUR ---
PT SITTING ON THE EDGE OF THE BED WATCHING TV TELE NSR , AAOX4 NO RESP DISTRESS NOTED , ON 2L N/C PIV INTACT INFUSING WELL .
[2019-12-23 04:26] VITALS: BP 90/53
--- NOTE | 2019-12-23 06:17 | NUR ---
NO CHANGESOF CONDITION NOTED ALL DUE MEDS GIVEN NO REACTION NOTED, HL PATENT FLUSHING WELL. TELE NSR .
--- NOTE | 2019-12-23 07:15 | NUR ---
RECEIVED PATIENT FROM PM NURSE, ALERT AND ORIENTED X 4, ABLE TO VERBALIZE NEEDS, NO C/O PAIN OR DISCOMFORT AT THIS TIME, LUNG SOUNDS CLEAR ON 2LPM VIA NC, ABLE TO AMBULATE TO BATHROOM INDEPENDENTLY, IV IN RH PATENT, ON TELEMETRY, NSR 80 AT THIS TIME, BOWEL SOUNDS ACTIVE, BLE DICOLORATION, PEDAL PULSES PRESENT AND EQUAL, NOM EDEMA NOTED, CONTINENT OF BLADDER, PATIENT PLEASANT AND COOPERATIVE
--- NOTE | 2019-12-23 09:00 | NUR ---
ASA AND HEAPARIN HELD DUE TO THORACENTISIS TO BE DONE THIS AFTERNOON
[2019-12-23 09:28] VITALS: BP 107/72
[2019-12-23 13:48] VITALS: BP 93/65
--- NOTE | 2019-12-23 14:47 | NUR ---
BEDSIDE THORACENTISIS STARTED BY RADIOLOGY
[2019-12-23 17:33] VITALS: BP 91/60
--- NOTE | 2019-12-23 18:39 | NUR ---
PATIENT RESTING COMFORTABLY IN BEDM, NO S/SX OF PAIN OR DISCOMFORT AT THIS TIME, WILL ENDORSE CARE TO PM NURSE
--- NOTE | 2019-12-23 20:12 | NUR ---
REPORT GIVEN BY DAY RN. PT [id number] CONFUSED. BREATHING EVEN ON RA 98% SPO2, SITTING AT THE SIDE OF THE BED. PT STATED HE WAS TRYING TO CALL PRESIDENT LALITHA, " HE NEEDS TO KNOW ABOUT THE NURSES, THATS WHY WE HAVE A SHORTAGE" PT WAS ASSISTED WITH CALMING DOWN AND ASSURED WE HAD ENOUGH NURSES TO TAKE CARE OF HIM THIS EVENING. PT HAS GEN. WEAKNESS, 22G IN THE RT HAND, FLUSED AND PATENT. SYBIL SURGE PT, DEINES CP. ACTIVE BOWELS, SOME DISCOLORATION IN BLE, STRONG RADIAL PULSES AND MODERATE PEDAL PULSES. PT STATE HE HAS BEEN VOIDING FREELY IN THE URINAL. PT IS BLIND IN BOTH EYES. BED IS LOW POSITION, SIDERAILS UPX2, CALL LIGHT WITHIN REACH.
[2019-12-23 21:39] VITALS: BP 103/79
--- NOTE | 2019-12-24 00:12 | NUR ---
PT C/O BACK PAIN. PRN TYLENOL 650 GIVEN.
--- NOTE | 2019-12-24 00:51 | NUR ---
PT RESTING, EYES OPEN. NO S/S OF DISTRESS OR DISCOMFORT. BREATHING EVEN ON RA. SPO2 99% UNLABORED. MED DURG PT. DENIES CP OR PALPITATION. DRESSING ON BACK RIGHT SIDE CLEAN DRY AND INTACT. NO LEAKS. MILD PAIN. MEDICATION GIVEN ORDERED. BED IN LOW POSTION, SIDE RAIL UPX2. CALL LIGHT WITHIN REACH. PT HAS HIS CELL PHONE WITHIN REACH.
--- NOTE | 2019-12-24 04:58 | NUR ---
PT RESTING WITH EYES CLOSED. NO S/S OF DISTRESS OR DISCOMFORT. PT BREATHING EVEN AND UNLABORED ON RA SPO2 99% PT HAS BILATERAL BLINDNESS. CELL PHONE AND CALL LIGHT ARE WITHIN REACH. MED SURG PATIENT, NO CP PT HAS A PACER/ DEFIBILLATOR. URINAL IS AT BEDSIDE.IV RIGHT HAND C/D/I. BED IN LOW POSITION, SIDE RAILS UPX2.
[2019-12-24 06:48] VITALS: BP 94/59
[2019-12-24] MEDS ORDERED: L20 PO (09:46)
[2019-12-24] MEDS ORDERED: PROA PO (09:47)
[2019-12-24 10:15] VITALS: BP 112/61
[2019-12-24 12:33] VITALS: BP 112/62
[2019-12-24 14:03] VITALS: BP 112/62
[2019-12-24 16:13] VITALS: BP 109/64
--- NOTE | 2019-12-24 16:27 | NUR ---
Pt has discharge orders. Discharge instructions given to pt. Pt verbalized understanding and provided signature but pt does not want to give his friend's who will pick him up phone number to the nurse or the complex case manager. manager product management called and spoke with pt at my presence but pt refused to give her the number. manager product management said she will look at the past records to see if she will find pt friend's number. Awaiting for complex case manager's updates to dischage pt. Will continue to monitor pt.
--- NOTE | 2019-12-24 18:56 | NUR ---
Pt discharged home around 1800. Alert and oriented times 4. Pt dischaged in stable condition. Pt send down via w/c accompanied with nursing assistance. IV access on Rt hand removed prior to discharge. Site WNL with no s/s of infection. Pt discharged home with all his belongings.
== END 2019-12-24 17:55 | DRG 133 ==
LOC: ED 11:12 → DU 15:31 → MU 12-24 07:03 → DU 12-24 07:04 → MU 12-24 16:49
PROVIDERS: Emergency Medicine; Family Medicine; ADMIT Internal Medicine; ATTEND Internal Medicine
PROC: 0W993ZZ Drainage of Right Pleural Cavity, Percutaneous Approach (ICD-10-PCS; 2019-12-21)
PROC: 0W9B3ZZ Drainage of Left Pleural Cavity, Percutaneous Approach (ICD-10-PCS; principal; 2019-12-23)
DX: J96.00 Acute respiratory failure, unspecified whether with hypoxia or hypercapnia (principal); N17.0 Acute kidney failure with tubular necrosis; I50.23 Acute on chronic systolic (congestive) heart failure; E44.0 Moderate protein-calorie malnutrition; J18.9 Pneumonia, unspecified organism; E11.42 Type 2 diabetes mellitus with diabetic polyneuropathy; I95.2 Hypotension due to drugs; J44.0 Chronic obstructive pulmonary disease with (acute) lower respiratory infection; J44.1 Chronic obstructive pulmonary disease with (acute) exacerbation; J90 Pleural effusion, not elsewhere classified; I25.10 Atherosclerotic heart disease of native coronary artery without angina pectoris; E78.5 Hyperlipidemia, unspecified; Z20.828 Contact with and (suspected) exposure to other viral communicable diseases; I25.5 Ischemic cardiomyopathy; H54.7 Unspecified visual loss; Z88.0 Allergy status to penicillin; Z79.899 Other long term (current) drug therapy; Z79.82 Long term (current) use of aspirin; Z88.8 Allergy status to other drugs, medicaments and biological substances; Z82.49 Family history of ischemic heart disease and other diseases of the circulatory system; Z68.24 Body mass index [BMI] 24.0-24.9, adult
CPT/HCPCS: 32555; 83880; 84439; 87804; 88344; 97116-GP; 97530-GP; C1729; G0378; J0456; J1200; J1644; J1940; J1956; J2001; J2405; J3535; J7040; J7050; Q0092; U0003-CS

== ENCOUNTER 2020-01-18 10:41 | Emergency (ER) | payer MEDICARE, OTHER ==
[~2020-01-18] VITALS: Ht 170.2 cm; Wt 68.9 kg
[~2020-01-18 10:41] MED LIST changes: +COL100 PO; +METOPROLOL SUCC25 M2 PO; +NATURE'S BLEND500 MG PO; +NORCO 10-325 T1 EACH PO; +PROA PO; +VITAMIN D-40400 UNIT PO; +ZOF4 PO
[2020-01-18 10:44] VITALS: Ht 170.2 cm; Wt 68.9 kg
[2020-01-18 12:13] LABS: BASOPHIL % 0.3 % (0-2); PLATELET COUNT 160 x10^3mcL (130-400)
[2020-01-18 12:15] LABS: RED CELL DISTRIBUTION WIDTH 15.2 % (11.5-14.5)
[2020-01-18 12:33] LABS: CALCIUM 8.5 mg/dL (8.5-10.1); CARBON DIOXIDE 34.2 mmol/L (21-32); CREATININE SERUM 1.5 mg/dL (0.7-1.3); POTASSIUM SERUM 4.3 mmol/L (3.5-5.1)
[2020-01-18 12:38] LABS: BILIRUBIN TOTAL 0.37 mg/dL (0.20-1.00); TOTAL PROTEIN, SERUM 6.7 g/dL (6.4-8.2)
[2020-01-18 19:04] VITALS: BP 119/70
== END 2020-01-18 19:04 | disposition home or self-care (01) ==
LOC: ED 10:41
PROVIDERS: Emergency Medicine
DX: R00.2 Palpitations (principal); J44.9 Chronic obstructive pulmonary disease, unspecified; I10 Essential (primary) hypertension; E11.9 Type 2 diabetes mellitus without complications; Z88.0 Allergy status to penicillin; Z88.6 Allergy status to analgesic agent; Z45.018 Encounter for adjustment and management of other part of cardiac pacemaker
CPT/HCPCS: 83880; Q0092

== ENCOUNTER 2020-01-28 17:15 | Emergency (ER) | payer MEDICARE, OTHER, SELFPAY ==
[~2020-01-28] VITALS: Ht 170.2 cm; Wt 72.1 kg
[2020-01-28 17:24] VITALS: Ht 170.2 cm; Wt 72.1 kg
[2020-01-28 18:31] LABS: BASOPHIL % 0.6 % (0-2); PLATELET COUNT 136 x10^3mcL (130-400)
[2020-01-28 18:32] LABS: RED CELL DISTRIBUTION WIDTH 15.1 % (11.5-14.5)
[2020-01-28 18:51] LABS: CALCIUM 8.8 mg/dL (8.5-10.1); CARBON DIOXIDE 28.6 mmol/L (21-32); CHLORIDE SERUM 105 mmol/L (98-107); CREATININE SERUM 1.2 mg/dL (0.7-1.3); GFR1 > 60 mL/min; GLUCOSE SERUM 99 mg/dL (74-106); SODIUM SERUM 141 mmol/L (136-145)
[2020-01-28 18:57] LABS: ALKALINE PHOSPHATASE 33 U/L (46-116); ALT/SGPT 12 U/L (16-63); AST/SGOT 13 U/L (15-37); BILIRUBIN TOTAL 0.3 mg/dL (0.20-1.00); C REACTIVE PROTEIN 0.3 mg/dL (<=0.9); HDL CHOLESTEROL 56 mg/dL (40-60); LACTIC DEHYDROGENASE (LDH) 176 U/L (100-190); LIPASE 104 IU/L (73-393); T4(THYROXINE) 8.7 ug/dL (4.7-13.3); TOTAL PROTEIN, SERUM 6.6 g/dL (6.4-8.2)
[2020-01-28 18:58] LABS: CHOLESTEROL 119 mg/dL (<200)
[2020-01-28 20:19] LABS: microscopic required? NO
[2020-01-28 20:32] LABS: UA SPECIFIC GRAVITY 1.025 (1.005-1.035); urine erythrocyte NEGATIVE (NEGATIVE)
[2020-01-28 20:47] LABS: AMPHETAMINE QUAL UR NONE DETECTED (See below)
[2020-01-29 03:09] VITALS: BP 106/66
== END 2020-01-29 03:09 | disposition home or self-care (01) ==
LOC: ED 17:15
PROVIDERS: Emergency Medicine
DX: J90 Pleural effusion, not elsewhere classified (principal); R79.1 Abnormal coagulation profile
CPT/HCPCS: 36600; 83880; 85378; 87804; Q0092; Q9967; U0003-CS

== ENCOUNTER 2020-02-20 13:12 | Inpatient (IN) | payer OTHER, MEDICARE, SELFPAY ==
[~2020-02-20] VITALS: Ht 170.2 cm; Wt 65.8 kg
--- NOTE | 2020-02-20 13:37 | NUR ---
PLACED IN BED 5 FOR EVAL, EKG IN PROGRESS AT BEDSIDE.
--- NOTE | 2020-02-20 13:41 | NUR ---
PT ARRIVED TO ED BIB FRIEND WITH COMPLAINTS OF MARCUM, LEFT SIDED CHEST PAIN AND LLQ ABD PAIN THAT RADIATES TO RIGHT SIDE OF ABD. PT STATES PAIN STARTED THIS AM "BUT MY FRIEND WOULDNT BRING ME IN UNTIL NOW" PT STATES PAIN IS SHARP AND IS 8/10 AT THIS TIME. PT ALSO STATES, "I AM VERY DEHYDRATED" AND STATES IS SOB AND HAS A COUGH, PT SATTING AT 96% ON ROOM AIR AT THIS TIME. RESPIRATIONS EVEN AND UNLABORED. EKG BEING PERFORMED AT THIS TIME. CHANGED INTO GOWN AND HOOKED UP WITH FCM. WILL CONTINUE TO MONITOR.
--- NOTE | 2020-02-20 13:56 | NUR ---
DR. MARTINI AT BEDSIDE AND EXAMINATION DONE
--- NOTE | 2020-02-20 15:55 | NUR ---
ATTEMPTS MADE TO START PERIPHERAL LINE. BY 2 OTHER NURSES, NON SUCCESSFUL
--- NOTE | 2020-02-20 16:46 | NUR ---
TALKATIVE, COOPERATIVE. VITAL SIGNS STABLE. SKIN DRY. RESPS ARE NON LABORED.
[2020-02-20 17:08] LABS: BASOPHIL % 0.2 % (0-2); PLATELET COUNT 141 x10^3mcL (130-400)
[2020-02-20 17:36] LABS: CALCIUM 8.7 mg/dL (8.5-10.1); CARBON DIOXIDE 26.8 mmol/L (21-32); CHLORIDE SERUM 104 mmol/L (98-107); CREATININE SERUM 1.1 mg/dL (0.7-1.3); GFR1 > 60 mL/min; GLUCOSE SERUM 85 mg/dL (74-106); POTASSIUM SERUM 3.9 mmol/L (3.5-5.1); SODIUM SERUM 138 mmol/L (136-145)
[2020-02-20 17:39] LABS: ALKALINE PHOSPHATASE 41 U/L (46-116); ALT/SGPT 11 U/L (16-63); AST/SGOT 14 U/L (15-37); BILIRUBIN TOTAL 0.4 mg/dL (0.20-1.00); TOTAL PROTEIN, SERUM 6.9 g/dL (6.4-8.2)
--- NOTE | 2020-02-20 18:44 | NUR ---
NORMAL SALINE BOLUS INFUSES WELL INTO RT EXT JUGULAR. ALERT. VITAL SIGNS STABLE
--- NOTE | 2020-02-20 19:30 | NUR ---
REPORT GIVEN TO R PROGRAMMER STAFF. ALERT.
--- NOTE | 2020-02-20 20:11 | NUR ---
PT ASSESSED PT AAOX4 SPEAKING IN FULL SENTENCES. PT INFORMED THAT URINE SPEC IS NEEDED. URINAL PROVIDED. PT COOPERATIVE AND PLEASANT NO ACUTE DISTRESS. PT REPORTS STOMACH PAIN 4/10
--- NOTE | 2020-02-20 21:13 | NUR ---
COVID RESULTS NEGATIVE
--- NOTE | 2020-02-20 22:13 | NUR ---
REPORT CALLED TO M/S TELE UNIT SPOKE WITH SATHISH SHEN FOR ROOM 254B
[2020-02-20 22:18] LABS: microscopic required? NO
[2020-02-20 22:22] LABS: UA SPECIFIC GRAVITY 1.025 (1.005-1.035); urine erythrocyte NEGATIVE (NEGATIVE)
--- NOTE | 2020-02-20 22:37 | NUR ---
RECEIVED PT FROM ED VIA [employer], CAME IN DUE TO PAIN FROM HEAD TO TOE. AAOX4. DENIES HEADACHE/DIZZINESS. ABLE TO FOLLOW COMMANDS. HAS HISTORY OF BLINDNESS. C/O MILD SOB, LUNG SOUNDS DIMINISHED ON AUSCULTATION, O2 SAT=97% ON 2LPM/NC. DENIES CHEST PAIN/PRESSURE, PACED ON THE DEMAND. W/ LEFT CHEST PACEMAKER. DENIES ABDOMINAL PAIN/NAUSEA/VOMITING. ABDOMEN IS SOFT AND ROUND. VOIDS. W/ DARK DISCOLORATIONS ON BLE AND LINEAR DISCOLORATION ON THE LEFT CHEST (S/P PACEMAKER PLACEMENT 1 MONTH AGO). W/ +1 EDEMA ON BLE. C/O FATIGUE. ABLE TO MOVE ALL EXTREMITIES. SIDE RAILS UPX2. CALL LIGHT ON REACH. PRIMARY NURSE SATHISH AT BEDSIDE FOR CONTINUITY OF CARE
[2020-02-20 22:51] VITALS: BP 108/74
[2020-02-20 23:02] VITALS: Ht 170.2 cm; Wt 65.8 kg
[2020-02-21 00:42] LABS: CHOLESTEROL/HDL RATIO 2.5; MAGNESIUM 2.2 mg/dL (1.8-2.4); PHOSPHOROUS 3.2 mg/dL (2.5-4.9)
--- NOTE | 2020-02-21 01:41 | NUR ---
PT RESTING COMFORTABLY IN BED. NO ACUTE DISTRESS NOTED. EVEN AND UNLABORED RESPIRATIONS ON 2LNC, ON TELE READING PACED ON DEMAND AT 60 BPM. C/O HAVING NO DIET, PAGED. NO C/O SOB OR PAIN AT THIS TIME. BED IN LOWEST POSITION. SIDE RAILS UPX2. CALL LIGHT WITHIN REACH. WILL CONTINUE TO MONITOR.
[2020-02-21 03:29] LABS: AMPHETAMINE QUAL UR NONE DETECTED (See below)
[2020-02-21 05:29] VITALS: BP 94/54
--- NOTE | 2020-02-21 06:35 | NUR ---
PT RESTED COMFORTABLY IN BED. NO ACUTE DISTRESS NOTED. EVEN AND UNLABORED RESPIRATIONS ON 2LNC PER PT PREFERENCE/COMFORT. ON TELE READING PACED ON DEMAND. REJ HEPLOCKED, PATENT AND INTACT. NO C/O PAIN OR SOB AT AT THIS TIME. BED IN LOWEST POSITION. SIDE RAILS UPX2. CALL LIGHT WITHIN REACH. WILL ENDORSE TO ONCOMING SHIFT.
--- NOTE | 2020-02-21 07:06 | NUR ---
RECEIVED PT FROM CINDER DUMP CRANE OPERATOR NURSE. PT IN BED SLEEPING, AROUSABLE, RESP E/U ON 2L NC. NO ACUTE DISTRESS NOTED. ON TELE 25, PACED, HR: 69. IV SALINE LOCK TO REJ W/ NO ERYTHEMA/EDEMA. BED IN LOWEST POSITION AND CALL LIGHT WITHIN REACH. WILL CONTINUE TO MONITOR.
[2020-02-21 08:43] VITALS: BP 94/63
[2020-02-21 12:27] VITALS: BP 87/56
--- NOTE | 2020-02-21 12:29 | NUR ---
PT RESTING IN BED, AXO4, RESP E/U ON 1.5L NC. TITRATED O2 TO 1 LPM, SUSTAINING SPO2: 99-100%. DENIES SOB OR CHEST PAIN AT THIS TIME. BED IN LOWEST POSITION AND CALL LIGHT WITHIN REACH. WILL CONTINUE TO MONITOR.
[2020-02-21 16:31] VITALS: BP 98/61
--- NOTE | 2020-02-21 18:26 | NUR ---
PT RESTING IN BED, AOX4, RESP E/U ON 1L NC, SPO2: 98%. DENIES SOB OR CHEST PAIN AT THIS TIME. C/O TINGLING/BURNING SENSATION FROM HIPS/BUTTOCKS TO BLE. DENIES NUMBNESS. REPOSITIONED PT AND ELEVATED BLE W/ PILLOW, PT STATED HE WAS COMFORTABLE. IV TO REJ PATENT/INTACT, WNL. BED IN LOWEST POSITION AND CALL LIGHT WITHIN REACH. WILL ENDORSE TO ONCOMING NURSE.
[2020-02-21 20:25] VITALS: BP 93/63
--- NOTE | 2020-02-21 22:13 | NUR ---
RECEIVED PT IN BED , ON1L N/C SAT PT WANT 02 TO 2L N/C SAT IS 98% ON 1L ,NO RESP DISTRESS NOTED AT THE MOMENT , TELE PACED , PT DENY CHEST PAIN AT THE MOMENT , LUNG SOUNDS DM . BILAT LOWER EXTR WITH 1+ EDEMA SOME DISCOLOR NOTED WARM TO TOUCH . HL PATENT FLUSHING WELL , CALL LIGHT WITHIN PTS REACH WILL CON'T TO MONITOR AND ASSIST PT WITH CARE .
[2020-02-22 05:34] VITALS: BP 94/63
--- NOTE | 2020-02-22 05:49 | NUR ---
PT'S IN BED WITH EYES CLOSED , TELE PACED .
--- NOTE | 2020-02-22 08:26 | NUR ---
RECEIVED REPORT FROM A ELECTRO MECHANICAL ENGINEER NURSE. PT IS ASLEEP ON 2L NC. VS IS WNL.
[2020-02-22 08:27] VITALS: BP 973/65
--- NOTE | 2020-02-22 11:15 | NUR ---
PT WAS SEEN BY DR MARSHALL AND MEDICAL TEAM DOCTORS. DR SPOKE WITH PT ABOUT THE PLAN TO DC HOME TODAY. (PT LIVES IN THE MAN'S HOME AND USES HOME O2) PT TO BE SEEN BY PHYSICAL THERAPIST PRIOR TO DISCHARGE. PT REPORTS THAT PT COMES TO HIS HOME IF NEEDED. DR MARSHALL MADE AWEAR ABOUT [place]OLOL HOLD FOR PT BP 92/67 WITH HR 67. ALSO DR MARSHALL MADE AWEAR AND AGREED TO CHANGE ORDER FOR LIPITOR TO NIGH TIME PER PT REQUEST.
[2020-02-22 14:03] VITALS: BP 100/68
--- NOTE | 2020-02-22 15:14 | NUR ---
PT REPORTED MARCUM AND ABDOMINAL PAIN 01/10. NORCO WAS GIVEN AT 1159. UPON REASSESSMNET PT REPORTED PAIN /. PT COMPLAINED OF NO BM FOR TWO DAYS. GIVEN PRN COLACE PER EMAR. PT WAS TAKEN FROM CARDIAC MONITORING HIS STATUS CHANGED TO MED SURG BY CARDIOLOGIS. SPOKE WITH DR SANTILLAN ABOUT PT WANTING TO TAKE LIPITOR AT NIGHT RATHER THAN IN THE MORNING. ORDER CHANGED.
[2020-02-22 17:31] VITALS: BP 95/66
--- NOTE | 2020-02-22 17:36 | NUR ---
RECEIVED DISCHARGE ORDERS FOR PATIENT TO RETURN TO HIS FACILLITY. SPOKE WITH MARIANELA NAVA, GRASS FARM LABORER FROM [facility]. 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 ASKED THEM TO BRING PATIENT'S CLOTHING AND PORTABLE O2 FOR TRANSPORT.
--- NOTE | 2020-02-22 19:38 | NUR ---
PT WAS GIVEN EDUCATION ABOUT HIS DISCHARGE APPOITMENTS, MEDICATIONS AND GENERALIZED PAIN SYMPTOMS. PT IS STILL WAITING TO BE PICKED UP.
--- NOTE | 2020-02-22 22:40 | NUR ---
LATE ENTRY - 1930 PT RECEIVED SITTING AT EDGE OF BED. PT IS DRESSED WITH BELONGINGS GATHERED WHEN RIDE HOME ARRIVES. A/OX4, CALM AND COOPERATIVE. DENIES CHCEST PAIN. RESPIRATIONS UNLABORED, 2L NC, DENIES SOB. ABD FLAT AND SOFT, NO BM TODAY. DENIES N/V. NO URINARY ISSUES PER PT. SKIN INTACT WITH DISCOLORATION TO CHEST AND LEGS. DENIES PAIN. SL REJ, PATENT NO COMPLIATIONS TO SITE. BED IN LOWEST POTIOSN, SIDE RAILS X 2, CALL LIGHT WITHIN REACH,
--- NOTE | 2020-02-22 22:42 | NUR ---
DISCHARGE ORDERS REVIEWED. SL REJ D/C, IV INTACT, GAUZE APPLIED, HEOMSTASIS ACHEVED, DRESSING C/D/I. A/OX4, PT DENIES SOB, PAIN, DIZINNESS, N/V. PT TAKEN DOWN VIA WHEELCHAIR WITH PORTABLE O2 AT 2L VIA NC. PT EDUCATION PACKET AND DISCHARGE PAPERWORK GIVEN TO [place]. DISCHARGE EDUCATION PROVIDED TO PT BY LIZBETH SHEN.
== END 2020-02-22 22:04 | disposition home or self-care (01) | DRG 198 ==
LOC: ED 13:12 → DU 18:17 → MU 02-22 17:43
PROVIDERS: Emergency Medicine; ADMIT Family Medicine; ATTEND Family Medicine
DX: R07.89 Other chest pain (principal); I25.10 Atherosclerotic heart disease of native coronary artery without angina pectoris; E44.0 Moderate protein-calorie malnutrition; J91.8 Pleural effusion in other conditions classified elsewhere; I11.0 Hypertensive heart disease with heart failure; E86.0 Dehydration; E11.42 Type 2 diabetes mellitus with diabetic polyneuropathy; Z99.81 Dependence on supplemental oxygen; J44.9 Chronic obstructive pulmonary disease, unspecified; F17.210 Nicotine dependence, cigarettes, uncomplicated; I50.22 Chronic systolic (congestive) heart failure; Z20.828 Contact with and (suspected) exposure to other viral communicable diseases; I25.5 Ischemic cardiomyopathy; E78.5 Hyperlipidemia, unspecified; E11.9 Type 2 diabetes mellitus without complications; Z88.0 Allergy status to penicillin; Z88.4 Allergy status to anesthetic agent; Z95.0 Presence of cardiac pacemaker; Z95.5 Presence of coronary angioplasty implant and graft; Z68.22 Body mass index [BMI] 22.0-22.9, adult; Z79.899 Other long term (current) drug therapy
CPT/HCPCS: 83880; G0378; J1885; J1940; J2405; J7040; Q0092

== ENCOUNTER 2020-03-13 08:03 | Inpatient (IN) | payer MEDICARE, OTHER ==
[~2020-03-13] VITALS: Ht 170.2 cm; Wt 68.9 kg
[2020-03-13 09:57] LABS: BASOPHIL % 0.3 % (0-2); PLATELET COUNT 142 x10^3mcL (130-400)
[2020-03-13 10:27] LABS: RED CELL DISTRIBUTION WIDTH 14.9 % (11.5-14.5)
[2020-03-13 14:17] LABS: CALCIUM 8.5 mg/dL (8.5-10.1); CARBON DIOXIDE 28.9 mmol/L (21-32); CHLORIDE SERUM 103 mmol/L (98-107); CREATININE SERUM 1.2 mg/dL (0.7-1.3); GFR1 > 60 mL/min; GLUCOSE SERUM 95 mg/dL (74-106); SODIUM SERUM 139 mmol/L (136-145)
[2020-03-13 14:22] LABS: ALBUMIN 3.5 g/dL (3.4-5.0); ALKALINE PHOSPHATASE 46 U/L (46-116); ALT/SGPT 15 U/L (16-63); AST/SGOT 19 U/L (15-37); BILIRUBIN TOTAL 0.39 mg/dL (0.20-1.00); TOTAL PROTEIN, SERUM 7.9 g/dL (6.4-8.2)
[2020-03-13 14:32] LABS: POTASSIUM SERUM 4.2 mmol/L (3.5-5.1)
[2020-03-13 16:35] VITALS: BP 118/73
[2020-03-13 20:08] VITALS: BP 95/63
[2020-03-13 23:39] LABS: AMPHETAMINE QUAL UR NONE DETECTED (See below)
[2020-03-14 05:30] VITALS: BP 98/65
[2020-03-14 08:04] VITALS: BP 100/70
[2020-03-14 12:08] VITALS: BP 102/70
[2020-03-14 12:17] LABS: BASOPHIL % 0.5 % (0-2); PLATELET COUNT 143 x10^3mcL (130-400); RED CELL DISTRIBUTION WIDTH 14.9 % (11.5-14.5)
[2020-03-14 12:25] LABS: CARBON DIOXIDE 29.1 mmol/L (21-32); CHLORIDE SERUM 105 mmol/L (98-107); CREATININE SERUM 1.2 mg/dL (0.7-1.3); GFR1 > 60 mL/min; GLUCOSE SERUM 114 mg/dL (74-106); MAGNESIUM 2.2 mg/dL (1.8-2.4); PHOSPHOROUS 4.1 mg/dL (2.5-4.9); POTASSIUM SERUM 4.2 mmol/L (3.5-5.1); SODIUM SERUM 141 mmol/L (136-145)
[2020-03-14 20:25] VITALS: BP 108/73
[2020-03-15 05:31] VITALS: BP 119/81
[2020-03-15 07:33] LABS: BASOPHIL % 0.4 % (0-2); PLATELET COUNT 133 x10^3mcL (130-400); RED CELL DISTRIBUTION WIDTH 14.4 % (11.5-14.5)
[2020-03-15 08:11] LABS: ALKALINE PHOSPHATASE 39 U/L (46-116); ALT/SGPT 13 U/L (16-63); AST/SGOT 13 U/L (15-37); BILIRUBIN TOTAL 0.42 mg/dL (0.20-1.00); CALCIUM 8.6 mg/dL (8.5-10.1); CARBON DIOXIDE 30.1 mmol/L (21-32); CHLORIDE SERUM 103 mmol/L (98-107); CREATININE SERUM 1.2 mg/dL (0.7-1.3); GFR1 > 60 mL/min; GLUCOSE SERUM 121 mg/dL (74-106); POTASSIUM SERUM 3.9 mmol/L (3.5-5.1); SODIUM SERUM 140 mmol/L (136-145); TOTAL PROTEIN, SERUM 6.8 g/dL (6.4-8.2)
[2020-03-15 08:27] VITALS: BP 109/76
[2020-03-15 12:52] VITALS: BP 94/67
[2020-03-15 16:50] VITALS: BP 107/74
[2020-03-15 21:41] VITALS: BP 96/65
[2020-03-16 05:38] VITALS: BP 106/72
[2020-03-16 07:37] LABS: CALCIUM 8.9 mg/dL (8.5-10.1); CARBON DIOXIDE 33.3 mmol/L (21-32); CHLORIDE SERUM 104 mmol/L (98-107); CREATININE SERUM 1.2 mg/dL (0.7-1.3); GFR1 > 60 mL/min; GLUCOSE SERUM 95 mg/dL (74-106); MAGNESIUM 1.9 mg/dL (1.8-2.4); POTASSIUM SERUM 4.7 mmol/L (3.5-5.1); SODIUM SERUM 142 mmol/L (136-145)
[2020-03-16 08:10] VITALS: BP 102/69
[2020-03-16 09:06] VITALS: BP 106/70
[2020-03-16 12:02] VITALS: BP 110/77
[2020-03-16 15:42] VITALS: Ht 170.2 cm; Wt 68.9 kg
[2020-03-16 16:19] VITALS: BP 100/61
[2020-03-16] MEDS ORDERED: NEURONTIN100 MG PO (16:41)
[2020-03-16] MEDS ORDERED: CARVEDILOL3.125 M1 PO (16:41)
[2020-03-16] MEDS ORDERED: KLOR-CON 1010 MEQ PO (16:42)
[2020-03-16] MEDS ORDERED: VENTOLIN H0.09 MG/A1 IH (16:44)
[2020-03-16] MEDS ORDERED: SPIRIVA18 MC1 IH (16:45)
[2020-03-16 20:10] VITALS: BP 107/66
[2020-03-17 05:40] VITALS: BP 98/68
[2020-03-17 08:00] VITALS: BP 120/63
[2020-03-17 12:18] VITALS: BP 115/57; BP 96/69
[2020-03-17 17:00] VITALS: BP 91/59
[2020-03-17 20:56] VITALS: BP 86/55
[2020-03-18 05:47] VITALS: BP 95/64
[2020-03-18 07:43] LABS: CARBON DIOXIDE 32.9 mmol/L (21-32); CHLORIDE SERUM 100 mmol/L (98-107); CREATININE SERUM 1.2 mg/dL (0.7-1.3); GFR1 > 60 mL/min; GLUCOSE SERUM 81 mg/dL (74-106); POTASSIUM SERUM 4.3 mmol/L (3.5-5.1); SODIUM SERUM 138 mmol/L (136-145)
[2020-03-18 08:08] VITALS: BP 107/62
[2020-03-18 13:07] VITALS: BP 93/60
[2020-03-18 17:25] VITALS: BP 99/39
[2020-03-18 19:10] VITALS: BP 99/45
[2020-03-19 05:52] VITALS: BP 101/62
[2020-03-19 06:51] LABS: CALCIUM 9.3 mg/dL (8.5-10.1); CARBON DIOXIDE 29.3 mmol/L (21-32); CHLORIDE SERUM 102 mmol/L (98-107); CREATININE SERUM 1.2 mg/dL (0.7-1.3); GFR1 > 60 mL/min; GLUCOSE SERUM 83 mg/dL (74-106); MAGNESIUM 2.2 mg/dL (1.8-2.4); POTASSIUM SERUM 4.3 mmol/L (3.5-5.1); SODIUM SERUM 139 mmol/L (136-145)
[2020-03-19 08:49] VITALS: BP 94/67
[2020-03-19 13:51] VITALS: BP 90/56
[2020-03-19 16:43] VITALS: BP 88/51
[2020-03-19 20:10] VITALS: BP 87/52
[2020-03-19 21:00] VITALS: BP 94/67
[2020-03-20 05:36] VITALS: BP 91/60
[2020-03-20 05:59] VITALS: BP 95/63
[2020-03-20 08:26] VITALS: BP 91/55
[2020-03-20 11:53] LABS: CALCIUM 9.1 mg/dL (8.5-10.1); CHLORIDE SERUM 103 mmol/L (98-107); CREATININE SERUM 1.1 mg/dL (0.7-1.3); GFR1 > 60 mL/min; GLUCOSE SERUM 112 mg/dL (74-106); POTASSIUM SERUM 4.2 mmol/L (3.5-5.1); SODIUM SERUM 140 mmol/L (136-145)
[2020-03-20 13:05] VITALS: BP 97/60
[2020-03-20 16:26] VITALS: BP 95/60
[2020-03-20 22:16] VITALS: BP 98/64
[2020-03-21 06:35] VITALS: BP 100/66
[2020-03-21 09:26] VITALS: BP 93/65
[2020-03-21 13:13] VITALS: BP 101/74
[2020-03-21 18:09] VITALS: BP 88/58
[2020-03-21 19:51] VITALS: BP 96/66
[2020-03-22 05:40] VITALS: BP 91/63
[2020-03-22 08:36] VITALS: BP 87/60
[2020-03-22 12:03] VITALS: BP 108/68
[2020-03-22 15:30] VITALS: BP 95/63
[2020-03-22 22:08] VITALS: BP 102/64
[2020-03-23 06:26] VITALS: BP 88/62
[2020-03-23 07:30] VITALS: BP 95/63
[2020-03-23 10:42] LABS: CALCIUM 9.1 mg/dL (8.5-10.1); CARBON DIOXIDE 32.4 mmol/L (21-32); CHLORIDE SERUM 100 mmol/L (98-107); CREATININE SERUM 1.1 mg/dL (0.7-1.3); GFR1 > 60 mL/min; GLUCOSE SERUM 113 mg/dL (74-106); POTASSIUM SERUM 4.3 mmol/L (3.5-5.1); SODIUM SERUM 137 mmol/L (136-145)
[2020-03-23 11:01] LABS: BASOPHIL % 0.2 % (0-2); PLATELET COUNT 144 x10^3mcL (130-400)
[2020-03-23 13:10] VITALS: BP 95/66
[2020-03-23 18:10] VITALS: BP 104/78
[2020-03-23 19:29] VITALS: BP 93/58
[2020-03-24] VITALS (7 sets, daily range): BP systolic 84–103; BP diastolic 51–67
[2020-03-24 07:07] LABS: BASOPHIL % 0.2 % (0-2); PLATELET COUNT 135 x10^3mcL (130-400)
[2020-03-24 07:22] LABS: RED CELL DISTRIBUTION WIDTH 14.7 % (11.5-14.5)
[2020-03-24 07:30] LABS: CALCIUM 9.4 mg/dL (8.5-10.1); CARBON DIOXIDE 31.5 mmol/L (21-32); CHLORIDE SERUM 97 mmol/L (98-107); CREATININE SERUM 1.2 mg/dL (0.7-1.3); GFR1 > 60 mL/min; GLUCOSE SERUM 84 mg/dL (74-106); POTASSIUM SERUM 4.2 mmol/L (3.5-5.1); SODIUM SERUM 133 mmol/L (136-145)
[2020-03-25 05:24] VITALS: BP 98/55
[2020-03-25 08:34] VITALS: BP 94/53
[2020-03-25 12:02] VITALS: BP 86/59
[2020-03-25 14:20] LABS: BASOPHIL % 0.1 % (0-2); PLATELET COUNT 144 x10^3mcL (130-400)
[2020-03-25 14:29] LABS: CARBON DIOXIDE 32.7 mmol/L (21-32); CHLORIDE SERUM 97 mmol/L (98-107); CREATININE SERUM 1.2 mg/dL (0.7-1.3); GFR1 > 60 mL/min; GLUCOSE SERUM 111 mg/dL (74-106); RED CELL DISTRIBUTION WIDTH 14.9 % (11.5-14.5); SODIUM SERUM 133 mmol/L (136-145)
[2020-03-25 16:07] VITALS: BP 91/58
[2020-03-25 20:54] VITALS: BP 95/60
[2020-03-26 06:25] VITALS: BP 94/66
[2020-03-26 08:37] VITALS: BP 92/50
[2020-03-26 12:29] VITALS: BP 95/60
[2020-03-26 12:32] VITALS: BP 101/50
[2020-03-26 17:09] VITALS: BP 93/61
[2020-03-26 20:45] VITALS: BP 97/64
[2020-03-27 05:15] VITALS: BP 93/59
[2020-03-27 08:03] VITALS: BP 140/92
[2020-03-27 08:08] VITALS: BP 92/57
[2020-03-27 12:50] VITALS: BP 91/59
[2020-03-27 16:22] VITALS: BP 112/50
[2020-03-27 20:58] VITALS: BP 93/58
[2020-03-28 05:52] VITALS: BP 92/50
[2020-03-28 07:02] LABS: CALCIUM 8.7 mg/dL (8.5-10.1); CARBON DIOXIDE 30.2 mmol/L (21-32); CHLORIDE SERUM 99 mmol/L (98-107); CREATININE SERUM 1.2 mg/dL (0.7-1.3); GFR1 > 60 mL/min; GLUCOSE SERUM 90 mg/dL (74-106); POTASSIUM SERUM 4.2 mmol/L (3.5-5.1); SODIUM SERUM 132 mmol/L (136-145)
[2020-03-28 07:55] LABS: BASOPHIL % 0.4 % (0-2); PLATELET COUNT 145 x10^3mcL (130-400)
[2020-03-28 08:34] LABS: RED CELL DISTRIBUTION WIDTH 14.9 % (11.5-14.5)
[2020-03-28 08:54] VITALS: BP 83/56
[2020-03-28 11:11] VITALS: BP 83/56
[2020-03-28] MEDS ORDERED: LASIX40 MG PO (11:22)
[2020-03-28 11:53] VITALS: BP 107/69
[2020-03-28 15:20] VITALS: BP 107/69
[2020-03-28 17:13] VITALS: BP 97/67
== END 2020-03-28 18:22 | DRG 291 ==
LOC: ED 08:03 → DU 14:57 → MU 14:57 → DU 16:56 → MU 03-15 17:44 → DU 03-19 06:01
PROVIDERS: Emergency Medicine; Family Medicine; ADMIT Internal Medicine; ATTEND Internal Medicine
PROC: 0W993ZZ Drainage of Right Pleural Cavity, Percutaneous Approach (ICD-10-PCS; principal; 2020-03-21)
DX: I11.0 Hypertensive heart disease with heart failure (principal); J96.01 Acute respiratory failure with hypoxia; J90 Pleural effusion, not elsewhere classified; I50.23 Acute on chronic systolic (congestive) heart failure; I25.5 Ischemic cardiomyopathy; J44.9 Chronic obstructive pulmonary disease, unspecified; E11.9 Type 2 diabetes mellitus without complications; Z20.828 Contact with and (suspected) exposure to other viral communicable diseases; Z95.0 Presence of cardiac pacemaker; Z88.0 Allergy status to penicillin; Z88.8 Allergy status to other drugs, medicaments and biological substances; Z95.818 Presence of other cardiac implants and grafts; Z79.899 Other long term (current) drug therapy; Z79.891 Long term (current) use of opiate analgesic; Z79.01 Long term (current) use of anticoagulants; Z82.49 Family history of ischemic heart disease and other diseases of the circulatory system
CPT/HCPCS: 32555; 82962; 83880; 85378; 90658; 97116-GP; 97530-GP; A9540; C1729; G0378; J1940; J7030; Q0092; U0003

== ENCOUNTER 2020-04-02 13:38 | Inpatient (IN) | payer OTHER, MEDICARE, SELFPAY ==
[~2020-04-02] VITALS: Ht 170.2 cm; Wt 68.9 kg
[~2020-04-02 13:38] MED LIST changes: +CARVEDILOL3.125 M1 PO; +KLOR-CON 1010 MEQ PO; +LASIX40 MG PO; +NEURONTIN100 MG PO; +SPIRIVA18 MC1 IH; +VENTOLIN H0.09 MG/A1 IH
[2020-04-02 14:03] VITALS: Ht 170.2 cm; Wt 68.9 kg
[2020-04-02 15:09] LABS: CALCIUM 8.4 mg/dL (8.5-10.1); CARBON DIOXIDE 30.9 mmol/L (21-32); CREATININE SERUM 1.4 mg/dL (0.7-1.3); POTASSIUM SERUM 4.1 mmol/L (3.5-5.1)
[2020-04-02 15:10] LABS: C REACTIVE PROTEIN 0.6 mg/dL (<=0.9)
[2020-04-02 15:11] LABS: ALBUMIN 3.3 g/dL (3.4-5.0); BASOPHIL % 0.3 % (0-2); PLATELET COUNT 206 x10^3mcL (130-400); RED CELL DISTRIBUTION WIDTH 15.1 % (11.5-14.5)
[2020-04-02 15:37] LABS: BILIRUBIN TOTAL 0.5 mg/dL (0.20-1.00)
[2020-04-02 16:18] LABS: UA SPECIFIC GRAVITY 1.025 (1.005-1.035); microscopic required? YES; urine erythrocyte 1+ (NEGATIVE)
[2020-04-02 16:27] LABS: AMPHETAMINE QUAL UR NONE DETECTED (See below)
[2020-04-02 16:36] VITALS: BP 103/63
[2020-04-02 18:26] VITALS: BP 106/71
[2020-04-02 20:32] VITALS: BP 95/61
[2020-04-03 05:45] VITALS: BP 102/67
[2020-04-03 06:07] VITALS: BP 85/57
[2020-04-03 06:35] LABS: BASOPHIL % 0.5 % (0-2); PLATELET COUNT 169 x10^3mcL (130-400)
[2020-04-03 06:56] LABS: ALKALINE PHOSPHATASE 46 U/L (46-116); ALT/SGPT 8 U/L (16-63); AST/SGOT 14 U/L (15-37); BILIRUBIN TOTAL 0.35 mg/dL (0.20-1.00); CALCIUM 8.4 mg/dL (8.5-10.1); CARBON DIOXIDE 28.2 mmol/L (21-32); CHLORIDE SERUM 104 mmol/L (98-107); CREATININE SERUM 1.2 mg/dL (0.7-1.3); GFR1 > 60 mL/min; GLUCOSE SERUM 83 mg/dL (74-106); POTASSIUM SERUM 3.9 mmol/L (3.5-5.1); SODIUM SERUM 138 mmol/L (136-145); TOTAL PROTEIN, SERUM 6.3 g/dL (6.4-8.2)
[2020-04-03 06:58] LABS: ALBUMIN 2.7 g/dL (3.4-5.0)
[2020-04-03 07:52] VITALS: BP 85/58
[2020-04-03 08:32] LABS: RED CELL DISTRIBUTION WIDTH 14.8 % (11.5-14.5)
[2020-04-03] MEDS ORDERED: LASIX40 MG PO (10:54)
[2020-04-03 12:13] VITALS: BP 92/61
[2020-04-03 14:09] VITALS: BP 92/61
== END 2020-04-03 14:42 | disposition home or self-care (01) | DRG 194 ==
LOC: ED 13:38 → DU 16:29
PROVIDERS: Emergency Medicine; ADMIT Hospitalist; ATTEND Hospitalist
DX: I11.0 Hypertensive heart disease with heart failure (principal); J96.11 Chronic respiratory failure with hypoxia; J44.1 Chronic obstructive pulmonary disease with (acute) exacerbation; I50.43 Acute on chronic combined systolic (congestive) and diastolic (congestive) heart failure; E11.9 Type 2 diabetes mellitus without complications; Z20.828 Contact with and (suspected) exposure to other viral communicable diseases; H54.8 Legal blindness, as defined in USA; I25.10 Atherosclerotic heart disease of native coronary artery without angina pectoris; E78.5 Hyperlipidemia, unspecified; Z88.0 Allergy status to penicillin; Z88.8 Allergy status to other drugs, medicaments and biological substances; Z95.0 Presence of cardiac pacemaker; Z84.89 Family history of other specified conditions; Z95.818 Presence of other cardiac implants and grafts; I25.2 Old myocardial infarction; Z82.49 Family history of ischemic heart disease and other diseases of the circulatory system
CPT/HCPCS: 36600; 82962; 83880; 85378; 87804; G0378; J1644; J1940; J2405; Q0092

== ENCOUNTER 2020-05-12 08:21 | Inpatient (IN) | payer OTHER, MEDICARE, SELFPAY ==
[~2020-05-12] VITALS: Ht 170.2 cm; Wt 65.3 kg
[2020-05-12 08:36] VITALS: Ht 170.2 cm; Wt 65.3 kg
--- NOTE | 2020-05-12 08:57 | NUR ---
EKG IN PROG
--- NOTE | 2020-05-12 09:21 | NUR ---
MSE COMPLETED BY DR SOUTH. PT STATES "I THINK SOMEBODY HAD THE FLU" AT THE FACILITY HE STAYS AT. PT STATES "YES" TO SORE THROAT, BODY ACHES, AND VOMITING. PT SITTING UPRIGHT ON GURNEY, REQUESTING OXYGEN BUT O2 SAT IS READING AT 96% WITH GOOD WAVEFORM. PT ALSO REPORTS COPD AND STATES "MY NOSE KEEPS RUNNING."
--- NOTE | 2020-05-12 09:32 | NUR ---
LAB AT BEDSIDE FOR BLOOD DRAW
--- NOTE | 2020-05-12 09:35 | NUR ---
PER RT, PT REFUSED ABG. DR SOUTH INFORMED OF SAME
[2020-05-12 10:28] LABS: BASOPHIL % 0.5 % (0.2-1.5)
[2020-05-12 10:43] LABS: CALCIUM 8.8 mg/dL (8.5-10.1); CARBON DIOXIDE 28.8 mmol/L (21-32); CREATININE SERUM 1.4 mg/dL (0.7-1.3); POTASSIUM SERUM 4.5 mmol/L (3.5-5.1)
--- NOTE | 2020-05-12 10:45 | NUR ---
PT SOILED GURNEY WITH URINE, SOILED LINENS REMOVED AND GIVEN CLEAN ONES
[2020-05-12 10:47] LABS: ALBUMIN 3.4 g/dL (3.4-5.0); BILIRUBIN TOTAL 0.4 mg/dL (0.20-1.00); C REACTIVE PROTEIN 0.6 mg/dL (<=0.9); TOTAL PROTEIN, SERUM 7.5 g/dL (6.4-8.2)
[2020-05-12 10:50] LABS: PLATELET COUNT 113 x10^3mcL (152-348); RED CELL DISTRIBUTION WIDTH 14.9 % (12.1-16.2)
--- NOTE | 2020-05-12 12:58 | NUR ---
PT HAS DIFFICULT VEINS - STILL ATTEMPTING TO IV ACCESS
--- NOTE | 2020-05-12 13:38 | NUR ---
2ND NURSE ATTEMPTED IV EST, NO SUCCESS
--- NOTE | 2020-05-12 13:57 | NUR ---
JASWINDER ATTEMPTING IV ACCESS
--- NOTE | 2020-05-12 14:14 | NUR ---
IV ACCESS EST BY JASWINDER. PT RECEIVING LEVAQUIN IVPB
[2020-05-12 15:00] LABS: MAGNESIUM 2.5 mg/dL (1.8-2.4); PHOSPHOROUS 3.3 mg/dL (2.5-4.9)
[2020-05-12 15:05] LABS: CHOLESTEROL/HDL RATIO 2.1
[2020-05-12 15:07] LABS: microscopic required? NO
[2020-05-12 15:12] LABS: UA SPECIFIC GRAVITY 1.025 (1.005-1.035); urine erythrocyte NEGATIVE (NEGATIVE)
--- NOTE | 2020-05-12 16:02 | NUR ---
FULL MONITORS IN PLACE; BREATHING E/U. NAD NOTED
--- NOTE | 2020-05-12 17:51 | NUR ---
NO AVAILABLE ZITRHOMAX IN [facility] - PHARMACY NOTIFIED
--- NOTE | 2020-05-12 18:02 | NUR ---
PT SAT UPRIGHT AND FEEDING SELF. ASSISTED PT IN CHOPPING UP FOOD
--- NOTE | 2020-05-12 19:15 | NUR ---
Recieved report from day shift nurse, pt awaiting floor bed request oxygen per nasal cannula on at 2litters respiration were at 37 sat 98 aftter O2 aplied rate 25 patient says he has oxygen at home at 2liters. aware of low b/p of 90/50 no new orders given.
--- NOTE | 2020-05-12 19:18 | NUR ---
REPORT GIVEN TO FINESSE SHEN
--- NOTE | 2020-05-12 19:27 | NUR ---
INFORMED DR BUENO REGARDING BP. NO NEW ORDERS AT THIS TIME
--- NOTE | 2020-05-12 23:59 | NUR ---
REPORT GIVEN TO AC PABLO TO ASSUME CARE OF PT.
[2020-05-13 00:52] VITALS: BP 94/60
--- NOTE | 2020-05-13 01:07 | NUR ---
RECEIVED PT FROM ER, PT ADMIT FOR COVID 19, CHEST PAIN. PT IS A/O X4, VERBAL RESPONSIVE. PARTIAL BLIND BOTH EYES. LUNG SOUND MILD CONGESTED. CONSTANTLY COUGH, PT IS ON 2L/ MIN O2 VIA NC. PO2 98%, PT IS ON TELE 55, 100% PACED AT THIS TIME, PACERMAKER AT LEFT CHEST. PT C/O CHEST PAIN 5/10 AT THIS MOMENT. BOWEL SOUND PRESENT ALL 4 QUADRANTS, NO DISTENTION, NO TENDER. PEDAL PULSE PRESENT BOTH FEET, TRACE EDEMA BLE. DARK DISCOLORATION AT BLE NOTED. IV AT LEFT FINGER. ALL ADLS ASSIST, ALL NEED MET, CALL LIGHT IN REACH, WILL CONTINUE TO MONITOR.
[2020-05-13 06:04] VITALS: BP 93/64
--- NOTE | 2020-05-13 06:36 | NUR ---
PT IS RESTING IN BED SLEEPING. VSS. REMAINS IN STABLE CONDITION. NO C/O PAIN OR DISCOMFORT THROUGHOUT SHIFT. NO SIGNIFICANT CHANGES AT THIS TIME. BED IN LOWEST POSITION. CALL LIGHT IS W/IN REACH. BED IN LOWEST POSITION. WILL ENDORSE TO DAY SHIFT NURSE.
--- NOTE | 2020-05-13 07:20 | NUR ---
PT IS AAOX4. PARTIAL BILATARAL BLINDNESS. NEEDS ASSISTANCE WITH TRAY SET UP AND FEED. TELE [address] READING 100% PACED. DENIES C/P, PRESSURE. RESP EVEN, SHALLOW. LUNG SOUNDS DIMINISHED BILATERAL BASES. ON O2 N/C AT 2LPM. NO COUGH NOTED AT THIS TIME. BLE DISCOLORATION. DISTAL PULSES MODERATELY PALPABLE. NO EDEMA. SKIN WARM. L FINGER 24G IV CATH. FLUSHED, PATENT. NO S/S OF INFECTION OR INFILTRATION. CDI. DENIES PAIN. CALL LIGHT WITHIN REACH. BED IN LOWEST POSITION.
[2020-05-13 08:59] VITALS: BP 87/55
--- NOTE | 2020-05-13 10:09 | NUR ---
B/P 87/55 HR 68. LASIX IVP HELD. ALL OTHER SCHEDULED MEDS GIVEN AND TOLERATED WELL. O2 NC AT 2LPM IN PLACE. NO SOB OR COUGH NOTED. DENIES PAIN. WILL CONTINUE TO MONITOR.
--- NOTE | 2020-05-13 11:44 | NUR ---
REPORTED TO BRIGIDA BHANDARI THAT PT'S B/P IS 87/55 (65), LASIX IVP HAS BEEN HELD. ALSO REPORTED PT DOES NOT HAVE ORDER FOR PCT. RECEIVED ORDER FOR MIDODRINE 5MG PO X1 NOW, MIDODRINE 5 MG PO BID, PCR TEST. ORDERS CARRIED OUT. PT MADE AWARE.
--- NOTE | 2020-05-13 12:33 | NUR ---
PROAMATINE PO GIVEN FOR LOW B/P 87/55 (65). BLOOD SUGAR 132 NO INSULIN GIVEN PER RISS. DENIES DIZZINESS OR FEELING FAINT. CALL LIGHT WITHIN REACH.
--- NOTE | 2020-05-13 12:56 | NUR ---
PCR TEST TAKEN AND SENT TO LAB AT THIS TIME.
[2020-05-13 13:28] VITALS: BP 97/69
--- NOTE | 2020-05-13 14:47 | NUR ---
REPORTED TO BRIGIDA BHANDARI NP THAT PT'S RAPID GIL ANTIGEN IS POSITIVE, PCR IS PENDING. PT DOES NOT HAVE CONSULT WITH INFECTIOUS DZ . RECEIVED ORDER TO ADD CONSULT, DR. GAUTHIER. PT MADE AWARE.
--- NOTE | 2020-05-13 15:37 | NUR ---
NEW IV CATH 24 G STARTED TO RFA 24G ON FIRST ATTEMPT. FLUSHED WITH GOOD BLOOD RETURN, COVERED WITH CDI OCCLUSIVE DRESSING. SITE WNL. TO BE USED MAINTENANCE LINE. ZITHROMAX IVBP INTITIATED TO R INDEX FIGURE. SITE WNL. DENIES PAIN. WILL CONTINUE TO MONITOR.
--- NOTE | 2020-05-13 16:25 | NUR ---
PT RESTING IN BED COMFORTABLY. RESP EVEN AND UNLABORED. O2 N/C AT 2LPM IN PLACE. BLOOD SUGAR 180, 3 UNITS REG INSULIN GIVEN TO RUQ. SITE WNL. DENIES PAIN. WILL CONTINUE TO MONITOR.
[2020-05-13 17:16] VITALS: BP 88/57
--- NOTE | 2020-05-13 18:42 | NUR ---
PT RESTING IN BED, DENIES PAIN. RESP EVEN AND UNLABORED. NO DISTRESS NOTED. I CATH TO L FINGER AND RFA S/L. PATENT, CDI. NO S/S OF INFECTION OR INFILTRATION. TELE [address] READING 100% PACED. O2 N/C AT [address] NO COUGH OR SOB NOTED. DENIES PAIN. CALL LIGHT WITHIN REACH. BED IN LOWEST POSITION. WILL ENDORSE ALL CARE TO NOC RN.
--- NOTE | 2020-05-13 20:00 | NUR ---
PT RECIEVED AAO REG RESP NO SOB ON 2L N/C SAT 95%,DIMINISHED TO AILEEN LOWER BASES,HOB,ABDO IS SOFT WITH ACTIVE BOWEL DOUNDS,PT ON TELE MONITOR AND IN NSR NO ECTOPY OR CHEST PAIN AT THIS TIME,KEPT CLEAN AND DRY TO TOUCH,CALL LIGHT EASY REACHED AND WILL CONTINUE TO MONITOR.
[2020-05-13 21:05] VITALS: BP 85/56
[2020-05-14 06:13] VITALS: BP 89/57
--- NOTE | 2020-05-14 06:34 | NUR ---
PT HAD A RESTING NIGHT NO CHANGE AT THIS TIME AND WILL CONTINUE TO MONITOR.
--- NOTE | 2020-05-14 07:30 | NUR ---
PT IS AAOX4, BLIND BILATERALLY. TELE [address] READING 100% PACED. RESP EVEN, SHALLOW, UNLABORED. LUNG SOUNDS DIMINISHED BILATERAL BASES, CONGESTION NOTED. ON 02 N/C AT 2LPM. PT HAS BLE DISCOLORATION. DISTAL PULSES MODERATELY PALPABLE. NO EDEMA. SKIN CDI. IV CATH TO L FINGER 24G. FLUSHED AND PATENT. CDI. S/L. IV CATH TO RFA 24G FLUSHED AND PATENT. S/L, CDI. BOTH SITES SHOW NO S/S OF INFECTION OR INFILTRATION. PT DENIES PAIN. CALL LIGHT WITHIN REACH. BED IN LOWEST POSITION. DROPLET PRECAUTIONS MAINTAINED.
[2020-05-14 09:06] VITALS: BP 90/49
--- NOTE | 2020-05-14 09:45 | NUR ---
PT REFUSED TO TAKE ASA, HE STATED," I CAN NOT TAKE ASA WITH PLAVIX HE WILL BLEED TO ." PT REFUSED TO TAKE LIPITOR HE STATED, " I ONLY TAKE LIPITOR AT NIGHT." LUCAS BRANNON HELD PT'S B/P (64). DENIES PAIN. CALL LIGHT WITHIN REACH.
[2020-05-14 10:34] LABS: BASOPHIL % 0.3 % (0.2-1.5); RED CELL DISTRIBUTION WIDTH 14.5 % (12.1-16.2)
--- NOTE | 2020-05-14 11:16 | NUR ---
REPORTED TO KRYSTAL ALLRED THAT LASIX WAS HELD DUE TO B/P 90/ (64). ALSO REPORTED THAT PT REFUSED BLOOD DRAW, REFUSED TO ASA WITH PLAVIX, REFUSED TO LIPITOR BECAUSE HE ONLY TAKES IT AT NIGHT. RECEIVED ORDER FOR MIDODRINE 10MG PO X1 NOW, AND TO CHANGE SCHEDULED MIDODRINE TO TID. GIVE MORNING LASIX. ORDERS CARRIED OUT. PT MADE AWARE.
[2020-05-14 11:29] LABS: PLATELET COUNT 116 x10^3mcL (152-348)
[2020-05-14 12:01] LABS: C REACTIVE PROTEIN 1.2 mg/dL (<=0.9); CALCIUM 8.8 mg/dL (8.5-10.1); CARBON DIOXIDE 25.8 mmol/L (21-32); CREATININE SERUM 1.4 mg/dL (0.7-1.3)
--- NOTE | 2020-05-14 12:22 | NUR ---
MIDODRINE 10MG PO GIVEN FOR B/P 90/49 (64). MORNING DOSE OF LASIX IVP GIVEN NOW ORDERED BY KRYSTAL ALLRED. BLOOD SUGAR 123, NO INSULIN GIVEN PER RISS. DENIES PAIN CALL LIGHT WITHIN REACH.
[2020-05-14 13:00] VITALS: BP 105/69
--- NOTE | 2020-05-14 14:30 | NUR ---
REPORTED TO KRYSTAL ALLRED THAT PT IS REQUESTING COUGH MEDICATION, PT DOES NOT HAVE LABS ORDERED FOR TOMORROW AND DR. GAUTHIER HAS NOT MET WITH PT YET. BRIGIDA STATED DO NOT ORDER LABS FOR PT, PT WILL JUST REFUSE THEM TOMORROW. BRIGIDA SPOKE WITH DR. GAUTHIER AND HE WILL SEE THE PT TONIGHT. ROBITUSSIN 100MG PO Q 12 HOURS FOR COUGH. ORDERS CARRIED OUT, PT MADE AWARE.
--- NOTE | 2020-05-14 14:30 | NUR ---
REPORTED TO KRYSTAL ALLRED THAT PT IS REQUESTING COUGH MEDICATION, PT DOES NOT HAVE LABS ORDERED FOR TOMORROW AND DR. GAUTHIER HAS NOT MET WITH PT YET. BRIGIDA STATED DO NOT ORDER LABS FOR PT, PT WILL JUST REFUSE THEM TOMORROW. BRIGIDA SPOKE WITH DR. GAUTHIER AND HE WILL SEE THE PT TONIGHT. ROBITUSSIN 100MG PO Q 12 HOURS PRN FOR COUGH. ORDERS CARRIED OUT, PT MADE AWARE.
--- NOTE | 2020-05-14 15:16 | NUR ---
MUCINEX PO PRN GIVEN, PT HAS C/O NONPRODUCTIVE COUGH. NO RESP DISTRESS NOTED. ZITHROMAX IVPB GIVEN. PT DENIES PAIN. PT INCONTINENT OF URINE. BEDDING AND GOWN CHANGED. CALL LIGHT WITHIN REACH. BED IN LOWEST POSITION.
--- NOTE | 2020-05-14 16:15 | NUR ---
PT NOTED WITH SACRAL COCCYX REDNESS AND BLE TRACE EDEMA. HYDRAGEL AND OPTIFOAM PLACE TO SACRAL COCCYX. REINFORCED EDUCATION TO TURN AND REPOSTION Q 2 HOURS AND FREQUENTLY. WILL ASSIST PT WITH TURNS Q 2 HOURS. PT DENIES PAIN. CALL LIGHT WITHIN REACH.
[2020-05-14 17:14] VITALS: BP 101/69
--- NOTE | 2020-05-14 18:41 | NUR ---
PT RESTING IN BED. RESP EVEN AND UNLABORED. ON 02 N/C AT 2LPM TOLERATING WELL. NO COUGH NOTED AT THIS TIME. TELE [address] READING 100% PACED. IV CATH TO L FINGER AND RFA BOTH PATENT. NO S/S OF INFECTION OR INFILTRATION. CDI. PT DENIES PAIN. CALL LIGHT WITHIN REACH. BED IN LOWEST POSITION. PT REPOSITIONED THROUGH OUT SHIFT. WILL ENDORSE ALL CARE TO NOC SHIFT RN.
[2020-05-14 20:47] VITALS: BP 96/63
[2020-05-15 05:59] VITALS: BP 95/67
--- NOTE | 2020-05-15 07:30 | NUR ---
PT IS AAOX4. PARTIAL BLINDNESS BILATERALLY. CAN DISCERN SHAPES. TLE [address] READING 100% PACED. PT DENIES C/P, PRESSURE AND PALPITATIONS. RESP EVEN, SHALLOW, UNLABORED. LUNG SOUNDS DIMINISHED BILATERAL BASES. NONPRODUCTIVE COUGH NOTED. PT IS ON MUCINEX Q 12 HOURS SCHEDULED. PT IS BEDFAST, CAN TURN AND REPOSITION WITH PROMPTING. PT WILL BE ASSISTED WITH TURNS Q 2 HOURS AND PRN. DISTAL PULSES MODERATE, SKIN WARM. BLE TRACE EDEMA WITH SKIN DISCOLORATION. SACRAL COCCYX REDNESS NOTED, SITE COVERED WITH HYDRAGUARD AND OPTIFOAM DRESSING, CDI. L FINGER AND RFA IV CATHS FLUSHED AND PATENT. CDI. NO S/S OF INFECTION OR INFILTRATION AT BOTH SITES. PT DENIES PAIN. CALL LIGHT WITHIN REACH. BED IN LOWEST POSITION. FALL PROTOCOL IN PLACE. BED ALARM ON.
[2020-05-15 08:37] VITALS: BP 90/61
--- NOTE | 2020-05-15 09:40 | NUR ---
PT REFUSED ASA, STATED HE WILL NOT TAKE IT WITH PLAVIX. PT REFUSED LIPTOR, HE STATED HE ONLY WILL TAKE IT AT NIGHT. ALL OTHER SCHEDULED MEDS GIVEN AND TOLERATED WELL. PT DENIES PAIN. N/C AT 2LPM IN PLACE. CALL LIGHT WITHIN REACH.
--- NOTE | 2020-05-15 10:29 | NUR ---
SCHEDULED MEDS GIVEN AND TOLERATED WELL. PT REFUSED ASA, STATED HE WILL NOT TAKE IT WITH PLAVIX. PT DENIES PAIN. N/C AT 2LPM IN PLACE. CALL LIGHT WITHIN REACH.
[2020-05-15 12:18] VITALS: BP 93/67
--- NOTE | 2020-05-15 13:00 | NUR ---
PT SITTING IN BED EATING LUNCH. BLOOD SUGAR 150, 3 UNITS REG INSULIN GIVEN PER RISS. DENIES PAIN. CALL LIGHT WITHIN REACH. DENIES PAIN. CALL LIGHT WITHIN REACH.
[2020-05-15 16:41] VITALS: BP 99/63
--- NOTE | 2020-05-15 17:00 | NUR ---
BLOOD SUGAR 142, NO INSULIN GIVEN PER RISS. SCHEDULED MED GIVEN AND TOLERATED WELL. DENIES PAIN.
--- NOTE | 2020-05-15 23:51 | NUR ---
2000 RECEIVED PATIENT IN BED,AWAKE,AND ORIENTED.SKIN WARM AND DRY TO TOUCH.ON ROOM AIR.LUNGS SOUND DIMINISHED UPON AUSCULTATION WITH O2 SAT.98% GOOD SOILA CARE GIVEN AFTEWR EACH EPISDODE OF BLADDER INCONTINENCE BUY USES URINAL AT TIMES. DENIES PAIN AND DISCOMFORT. CALL LIGHT WITHIN REACH.
[2020-05-15 23:55] VITALS: BP 94/59
--- NOTE | 2020-05-16 01:48 | NUR ---
INFORMED PATIENT PLAN OF CARE AND ORDERED FOR PLASMA TRANSFUSION BUT PATIENT NEEDS TO SIGN THE CONSENT, PATIENT REFUSED TO SIGN BECAUSE PATIENT VERBALIZED BELIEVE THIS WILL CAUSE CHF AND SO ON.PROVIDED EDUCATION WITH PAPERS REGARDING PLASMA THE RSIK AND BENEFIT BUT CONTINUED TO REFUSED.PLACED A CALL TO RESIDENT AND LEAVE MESSAGE REGARDING REFUSAL TO DR. BUENO.
[2020-05-16 04:55] VITALS: BP 100/59
[2020-05-16 08:19] LABS: BASOPHIL % 0.2 % (0.2-1.5)
--- NOTE | 2020-05-16 08:20 | NUR ---
RECIEVED PT IN A STABLE CONDITION, HE IS A 65Y MALE AAOX4 ON TELE 55 SHOWING 100% PACED. DROPLET PRECAUTIONS IN PLACE, PULSES PALPABLE AND TRACE EDEMA NOTED ON BLE. HE IS ON ROOM AIR WITH SAT AT 97% WITH LUNG SOUNDS DIMINISHED AT BASES. ABD SOFT AND NORMOACTIVE X4, GENERALIZED WEAKNESS NOTED. BED IS IN LOW POSITION WITH CALL LIGHT IN REACH. WILL CONTINUE TO MONITOR.
[2020-05-16 08:27] LABS: BILIRUBIN DIRECT 0.12 mg/dL (0.0-0.2); BILIRUBIN TOTAL 0.31 mg/dL (0.20-1.00); TOTAL PROTEIN, SERUM 6.5 g/dL (6.4-8.2)
[2020-05-16 08:28] LABS: ALBUMIN 2.8 g/dL (3.4-5.0)
[2020-05-16 09:02] VITALS: BP 95/65
[2020-05-16 09:34] LABS: PLATELET COUNT 126 x10^3mcL (152-348); RED CELL DISTRIBUTION WIDTH 14.6 % (12.1-16.2)
[2020-05-16] MEDS ORDERED: DECADRON6 MG PO (09:51)
[2020-05-16] MEDS ORDERED: MUCINEX600 MG PO (09:51)
[2020-05-16 12:03] VITALS: BP 95/64
[2020-05-16 15:26] VITALS: BP 95/64
--- NOTE | 2020-05-16 18:22 | NUR ---
PT WAS DISCHARGED IN A STABLE CONDITION AT 1740. ALL INTERVENTIONS CARRIED OUT PER PROTOCOL WITH NO SIGNIFICANT CHANGES IN STATUS NOTED. HE WAS PICKED UP BY HIS ROOM MATE JERZY. ALL DISCHARGE PAPERWORK SIGNED AND FILED AND ALL DISCHARGTE TEACHING PROVIDED.
== END 2020-05-16 18:00 | disposition home or self-care (01) | DRG 137 ==
LOC: ED 08:21 → DU 13:02
PROVIDERS: Emergency Medicine; ADMIT Family Medicine; ATTEND Family Medicine
PROC: XW033E5 Introduction of Remdesivir Anti-infective into Peripheral Vein, Percutaneous Approach, New Technology Group 5 (ICD-10-PCS; principal; 2020-05-15)
DX: U07.1 COVID-19 (principal); I50.23 Acute on chronic systolic (congestive) heart failure; J44.9 Chronic obstructive pulmonary disease, unspecified; J12.89 Other viral pneumonia; I11.0 Hypertensive heart disease with heart failure; E11.9 Type 2 diabetes mellitus without complications; I25.5 Ischemic cardiomyopathy; I25.10 Atherosclerotic heart disease of native coronary artery without angina pectoris; Z88.0 Allergy status to penicillin; Z88.8 Allergy status to other drugs, medicaments and biological substances; Z95.818 Presence of other cardiac implants and grafts; Z95.0 Presence of cardiac pacemaker
CPT/HCPCS: 82962; 83880; 85378; 87804; 94150; G0378; J0456; J1100; J1815; J1940; J1956; J7040; J7050; U0003

== ENCOUNTER 2020-05-25 10:31 | Emergency (ER) | payer MEDICARE, OTHER ==
[~2020-05-25] VITALS: Ht 175.3 cm; Wt 63.5 kg
[~2020-05-25 10:31] MED LIST changes: +DECADRON6 MG PO; +MUCINEX600 MG PO
[2020-05-25 10:32] VITALS: Ht 175.3 cm; Wt 63.5 kg
[2020-05-25 12:30] LABS: BASOPHIL % 0.3 % (0.2-1.5); PLATELET COUNT 154 x10^3mcL (152-348)
[2020-05-25 12:46] LABS: CALCIUM 8.9 mg/dL (8.5-10.1); CARBON DIOXIDE 24.3 mmol/L (21-32); CHLORIDE SERUM 98 mmol/L (98-107); CREATININE SERUM 1.2 mg/dL (0.7-1.3); GFR1 > 60 mL/min; GLUCOSE SERUM 116 mg/dL (74-106); POTASSIUM SERUM 3.8 mmol/L (3.5-5.1); RED CELL DISTRIBUTION WIDTH 15.2 % (12.1-16.2); SODIUM SERUM 133 mmol/L (136-145)
[2020-05-25 13:01] LABS: ALBUMIN 3.3 g/dL (3.4-5.0); ALKALINE PHOSPHATASE 54 U/L (46-116); ALT/SGPT 26 U/L (16-63); AST/SGOT 17 U/L (15-37); BILIRUBIN TOTAL 0.6 mg/dL (0.20-1.00); TOTAL PROTEIN, SERUM 8.1 g/dL (6.4-8.2)
[2020-05-25 15:55] VITALS: BP 110/70
== END 2020-05-25 15:55 | disposition home or self-care (01) ==
LOC: ED 10:31
PROVIDERS: Emergency Medicine
DX: U07.1 COVID-19 (principal); R07.89 Other chest pain; G89.29 Other chronic pain; J44.9 Chronic obstructive pulmonary disease, unspecified; I10 Essential (primary) hypertension; E11.9 Type 2 diabetes mellitus without complications; Z88.0 Allergy status to penicillin; Z88.8 Allergy status to other drugs, medicaments and biological substances; Z86.73 Personal history of transient ischemic attack (TIA), and cerebral infarction without residual deficits; Z95.0 Presence of cardiac pacemaker

== ENCOUNTER 2020-06-21 10:18 | Emergency (ER) | payer MEDICARE, OTHER ==
[~2020-06-21] VITALS: Ht 170.2 cm; Wt 68.9 kg
[2020-06-21 10:21] VITALS: Ht 170.2 cm; Wt 68.9 kg
[2020-06-21] MEDS ORDERED: NAPROSYN500 MG PO (13:54)
[2020-06-21 15:00] VITALS: BP 110/63
== END 2020-06-21 15:00 | disposition home or self-care (01) ==
LOC: ED 10:18
DX: S80.12XA Contusion of left lower leg, initial encounter (principal); J44.9 Chronic obstructive pulmonary disease, unspecified; I10 Essential (primary) hypertension; Z86.73 Personal history of transient ischemic attack (TIA), and cerebral infarction without residual deficits; E11.9 Type 2 diabetes mellitus without complications; Z88.0 Allergy status to penicillin; Z88.8 Allergy status to other drugs, medicaments and biological substances; W22.03XA Walked into furniture, initial encounter; Y93.89 Activity, other specified; Y92.89 Other specified places as the place of occurrence of the external cause; Y99.8 Other external cause status

== ENCOUNTER 2020-07-20 11:48 | Inpatient (IN) | payer OTHER, MEDICARE, SELFPAY ==
[~2020-07-20] VITALS: Ht 170.2 cm; Wt 68.0 kg
[~2020-07-20 11:48] MED LIST changes: +NAPROSYN500 MG PO
--- NOTE | 2020-07-20 12:04 | NUR ---
INFORMED PRIMARY RN PT IN RM OB
[2020-07-20 12:17] VITALS: Ht 170.2 cm; Wt 68.0 kg
--- NOTE | 2020-07-20 12:39 | NUR ---
PT CAME FROM HOME C/O SOB, CHEST PAIN, PAIN 9/10 SHARP PAIN RADIATING TO FINGERS, LEGS, FEET, PT STATES HE HAS A PRODUCTIVE COUGH, HAS BEEN IN PAIN FOR THIS MORNING, PT STATES HE HAS DIFFICULTY WITH BREATHING WHEN GETTING UP, PT WAS GOWNED, PLACED ON FULL MANUFACTURING INTERN, PROVIDED WARM BLANKETS, SAFETY PRECAUTIONS IN PLACE, CALL LIGHT WITHIN REACH, WILL CONTINUE TO MONITOR.
--- NOTE | 2020-07-20 13:05 | NUR ---
XRAY AT BEDSIDE
[2020-07-20 13:16] LABS: BASOPHIL % 0.8 % (0.2-1.5); PLATELET COUNT 144 x10^3mcL (152-348)
[2020-07-20 13:20] LABS: CHLORIDE SERUM 104 mmol/L (98-107); CREATININE SERUM 1.2 mg/dL (0.7-1.3); GFR1 > 60 mL/min; GLUCOSE SERUM 96 mg/dL (74-106); POTASSIUM SERUM 4.3 mmol/L (3.5-5.1); SODIUM SERUM 139 mmol/L (136-145)
[2020-07-20 13:29] LABS: ALKALINE PHOSPHATASE 47 U/L (46-116); ALT/SGPT 15 U/L (16-63); AST/SGOT 13 U/L (15-37); BILIRUBIN TOTAL 0.5 mg/dL (0.20-1.00); C REACTIVE PROTEIN 0.5 mg/dL (<=0.9); LIPASE 93 IU/L (73-393); TOTAL PROTEIN, SERUM 7.2 g/dL (6.4-8.2)
[2020-07-20 13:30] LABS: ALBUMIN 3.3 g/dL (3.4-5.0)
[2020-07-20 13:36] LABS: CK-MB 0.5 ng/mL (0-3.6)
[2020-07-20 13:44] LABS: T3 TOTAL 1.11 ng/mL
[2020-07-20 13:51] LABS: FREE T4 1.23 ng/dL (0.76-1.46); FREE THYROXINE INDEX 3.3 ug/dL (1.4-4.5); T4(THYROXINE) 9.5 ug/dL (4.7-13.3)
[2020-07-20 14:14] LABS: ERYTHROCYTE SED RATE 22 mm/hr (0-20)
[2020-07-20 15:21] LABS: microscopic required? NO
[2020-07-20 15:27] LABS: UA SPECIFIC GRAVITY 1.025 (1.005-1.035); urine erythrocyte NEGATIVE (NEGATIVE)
[2020-07-20 17:02] VITALS: BP 120/79
[2020-07-20 17:14] VITALS: BP 120/79
--- NOTE | 2020-07-20 17:14 | NUR ---
RECEIVED PT FROM ER, PT ADMIT FOR CHF. RIGHT PLEURAL EFFUSION. PT IS A/O X4, VERBAL RESPONSIVE. PARTIAL BLINDNESS, LUNG SOUND CLEAR BILATERAL, NO COUGH, PO2 97% IN ROOM AIR. PT IS ON TELE 32, 100% PACED, C/O CHEST PAIN 8/10, BOWEL SOUND PRESENT ALL 4 QUADRANTS, NO DISTENTION, NO TENDER. PEDAL PULSE PRESENT BOTH FEET, +1 EDEMA BLE. IV AT LEFT HAND, NO LEAKING, NO INFILTRATION. ALL ADLS ASSIST, ALL NEED MET, CALL LIGHT IN REACH, WILL CONTINUE TO MONITOR.
--- NOTE | 2020-07-20 18:20 | NUR ---
RECIEVED REPORT FROM ADMITTING NURSE, PATIENT IS A&OX4, ROOM AIR, IV IS CLEAN AND INTACT, PATIENT HAS PARTIAL BLINDNESS AND NEEDS ASSISTS WITH ALL ADLS, PATIENT IS CALM AND COOPERATIVE, WILL CONTINUE TO MONITOR.
--- NOTE | 2020-07-20 19:45 | NUR ---
REPORT WAS RECEIVED FROM AM NURSE. PT IS ALERT AND ORIENTED X4. PT IS PARTIALLY BLIND. PT IS ON TELE #32, PT HAS A PACEMAKER IN L UPPER CHEST, 100% PACED. PT HAS +1 EDEMA IN BLE WITH SKIN DISCOLORATION IN BLE. LUNG SOUNDS ARE CLEAR. PT IS ON ROOM AIR. LAST BOWEL MOVEMENT WAS ON 07/18/20. PT REPORTS 9/10 CHEST PAIN. PT HAS AN IV IN L HAND, SALINE LOCKED. IV SITE IS CLEAN, DRY, AND INTACT. NO SIGNS OF INFECTION NOTED. NO SIGNS OF INFILTRATION NOTED. CALL LIGHT IS WITHIN REACH. WILL CONTINUE TO MONITOR.
[2020-07-20 21:07] VITALS: BP 107/70
--- NOTE | 2020-07-20 21:44 | NUR ---
NOTIFIED DR NUNEZ REGARDING PT'S CHEST PAIN. WILL CONTINUE TO MONITOR
[2020-07-20 22:19] VITALS: BP 92/58
--- NOTE | 2020-07-20 22:21 | NUR ---
BLOOD PRESSURE 92/58. WILL NOTIFY DOCTOR.
--- NOTE | 2020-07-20 23:13 | NUR ---
BP 92/58. DR NUNEZ WAS OK TO GIVE NORCO. WILL CONTINUE TO MONITOR.
--- NOTE | 2020-07-21 00:16 | NUR ---
PT IS RESTING IN BED WITH EYES CLOSED BUT IS EASILY AROUSABLE. PT IS NOT IN ACUTE DISTRESS AT THIS TIME. PT DENIES SOB. BREATHING IS EVEN AND UNLABORED. PT DENIES N/V/D. PT HAS 4/10 CHEST PAIN BUT IS TOLERABLE. CALL LIGHT IS WITHIN REACH. FALL PRECAUTIONS ARE IN PLACE. SIDE RAILS UP X2. WILL CONTINUE TO MONITOR.
[2020-07-21 02:34] LABS: BASOPHIL % 0.9 % (0.2-1.5); PLATELET COUNT 130 x10^3mcL (152-348)
[2020-07-21 02:38] LABS: CARBON DIOXIDE 33.4 mmol/L (21-32); CREATININE SERUM 1.3 mg/dL (0.7-1.3); MAGNESIUM 2.4 mg/dL (1.8-2.4); POTASSIUM SERUM 3.7 mmol/L (3.5-5.1)
[2020-07-21 02:40] LABS: RED CELL DISTRIBUTION WIDTH 17.7 % (12.1-16.2)
--- NOTE | 2020-07-21 04:49 | NUR ---
PT REPORTS HAVING SOB. SPO2 92%. PT WAS PUT ON 2L NC, PT REPORTS FEELING BETTER. SPO2 98%. WILL CONTINUE TO MONITOR
[2020-07-21 06:09] VITALS: BP 101/65
--- NOTE | 2020-07-21 06:29 | NUR ---
PT IS RESTING IN BED. PT IS NOT IN ACUTE DISTRESS AT THIS TIME. PT HAS NO C/O PAIN OR DISCOMFORT. CALL LIGHT IS WITHIN REACH. WILL ENDORSE CARE TO AM NURSE.
--- NOTE | 2020-07-21 07:30 | NUR ---
RECIEVED REPORT FROM DUE DILIGENCE COORDINATOR, PATIENT IS A&OX4, PARTIAL BLINDNESS, REQUIRES ASSISTANCE FOR ALL ADLS. ON 2 LITERS O2 VIA NASSAL CANULA, REPORTS USING O2 AT HOME. REPORTS IMPROVED PAIN BUT PAIN IS CURRENTLY MODERATE, DARK DISCOLORATION ON LOWER EXTREMITIES BENEATH THE KNEE. IV LH 24 GAUGE. PATIENT IS CALM AND COOPERATIVE, WILL CONTINUE TO MONITOR.
[2020-07-21 08:12] VITALS: BP 106/49
[2020-07-21 12:22] VITALS: BP 95/65
--- NOTE | 2020-07-21 13:20 | NUR ---
PATIENT REPORTS PAIN OF 6/10, ADMINISTERED NORCO, PATIENT REPORTS IMPROVED PAIN.
[2020-07-21 16:25] VITALS: BP 96/61
--- NOTE | 2020-07-21 18:30 | NUR ---
PATIENT IS ON 2 LITERS O2 VIA NC, PATIENT REPORTS NO DIFFICULTY BREATHING AND NO PAIN. LEFT PATIENT RESTING WITH ALL NEEDS ATTENDED TO.
--- NOTE | 2020-07-21 19:40 | NUR ---
RECEIVED FROM DAY RN. AWAKE AT THIS TIME. A/O X 4. STATES HE IS PARTIALLY BLIND IN BOTH EYES. DENIES SOB AT THIS TIME BUT CLAIMS TO HAVE SOME MILD CHEST PAIN. PACED ON TELE 32. LUNG SOUNDS ARE CLEAR ON 2L NC. CIRCULATION MODERATE WITH BLE EDEMA. BOWEL SOUNDS ACTIVE X 4. PT VOIDS VIA URINAL. GEN WEAKNESS. DARK DISCOLORATION TO BLE. IV TO L HAND SALINE LOCKED. CALM AND COOPERATIVE, CALL LIGHT WIHTIN REACH, BED IN LOWEST POSITION.
[2020-07-21 20:50] VITALS: BP 93/59
--- NOTE | 2020-07-22 01:00 | NUR ---
REPLACED TELE BATTERY. PT RESTING IN BED WITH EYES CLOSED, AROUSABLE. CHEST FALL AND RISE OBSERVED. NO S/S OF PAIN OR SOB. CALL LIGHT WITHIN REACH, BED LOCKED IN LOWEST POSITION.
[2020-07-22 05:30] VITALS: BP 90/61
--- NOTE | 2020-07-22 06:36 | NUR ---
PT AWAKE AT THIS TIME ON PHONE. DENIES SOB OR CHEST PAIN. NO CRITICAL CHANGES OVERNIGHT. BREATHING E/U ON 2 L NC. CALL LIGHT WITHIN REACH. WILL ENDORSE TO DAY RN.
--- NOTE | 2020-07-22 07:25 | NUR ---
RECIEVED PT FROM LUMP INSPECTOR NURSE TELE#32, 100% PACED, PACEMAKER IN PLACE. A/OX4, BREAHTING E/U ON RA. IN NO ACUTE RESPIRATORY DISTRESS. PULSE PALP. NO EDEMA NOTED. ABDOMEN FIRM DISTENTED BUT NONTENDER TO PALPATION. NO WEAKNESS NOTED, PATIENT AMBLATORY, SKIN INTACT. C/O OF MILD CHEST AND ABDOMEN PAIN WILL MEDICATE PER EMR. SALINE LOCK LEFT HAND 24G. NO FUTRTHER CONCERNS VOICED AT THIS TIME. BED IN LOWEST POSITION, CALL LIGHT IN REACH.
[2020-07-22 07:32] VITALS: BP 95/64
[2020-07-22 08:03] LABS: BASOPHIL % 0.7 % (0.2-1.5)
[2020-07-22 08:22] LABS: CALCIUM 8.9 mg/dL (8.5-10.1); CARBON DIOXIDE 21.8 mmol/L (21-32); CREATININE SERUM 1.3 mg/dL (0.7-1.3); MAGNESIUM 2.1 mg/dL (1.8-2.4); POTASSIUM SERUM 4.3 mmol/L (3.5-5.1)
[2020-07-22 08:25] LABS: PLATELET COUNT 126 x10^3mcL (152-348); RED CELL DISTRIBUTION WIDTH 16.9 % (12.1-16.2)
--- NOTE | 2020-07-22 09:19 | NUR ---
SPOKE WITH PATIENT REGARDING HIS HOME MEDS. TAKES PLAVIX Q PM, LAST DOSE 07-20-20. STATES THAT HIS ATTENDING PHYSICIAN MENTIONED POSSIBILITY OF THORACENTESIS IN A FEW DAYS. PATIENT'S NURSE HAYLEE WILL CALL ATTENDING PHYSICIAN TO VERIFY ORDER. IF NOT TODAY, NEXT AVAILABLE TIME FOR SCHEDULED THORA WOULD BE SATURDAY, 07/25 WHICH WOULD ALLOW FOR 4 DAYS OFF PLAVIX. SPOKE WITH RADIOLOGIST DR RESENDEZ WHO IS WILLING TO PROCEED EITHER TODAY OR SATURDAY DEPENDING ON THE PREFERENCE OF ATTENDING PHYSICIAN.
--- NOTE | 2020-07-22 09:26 | NUR ---
PATIENT'S NURSE HAS NOT HEARD FROM ATTENDING PHYSICIAN YET. I PLACED A PAGE TO DR FOOTE AT THIS TIME. AWAITING CALLBACK.
--- NOTE | 2020-07-22 09:39 | NUR ---
SPOKE WITH DR FOOTE BY PHONE WHO STATES MATHEMATICAL SCIENTIST DR SANTILLAN LIKELY ORDERED THE THORACENTESIS AND SHOULD BE AWARE THAT PATIENT HAS BEEN ON PLAVIX. DR RESENDEZ WILLING TO PROCEED.
--- NOTE | 2020-07-22 09:56 | NUR ---
PLACED CALL TO DR LAURIE SANTILLAN TO CLARIFY THORACENTESIS ORDER, WHICH STATES IN COMMENTS "ULTRASOUND TO EVALUATE PLEURAL EFFUSIONS." AWAITING CALLBACK TO SEE IF ACTUAL THORACENTESIS IS THE INTENTION.
--- NOTE | 2020-07-22 10:11 | NUR ---
SPOKE WITH DR LAURIE SANTILLAN. HE DID NOT INTEND TO ORDER THORACENTESIS INITIALLY, ONLY AN EVAL. NOTIFIED HIM OF PLEURAL FLUID GREATER THAN 1100 ML ON LEFT AND 1400 ON RIGHT. HE IS AWARE THAT PATIENT HAS BEEN ON PLAVIX UNTIL EVENING OF -17, AND STATES IF RADIOLOGIST FEELS COMFORTABLE TO PROCEED WITH THORACENTESIS COULD BE DONE EITHER TODAY OR SATURDAY WHICH WOULD BE THE INTERVAL NORMALLY ALLOWED AFTER DISCONTINUING PLAVIX. CALL PLACED TO DR FOOTE AT REQUEST OF DR RESENDEZ TO NOTE HIS PREFERENCE. AWAITING CALLBACK.
--- NOTE | 2020-07-22 10:20 | NUR ---
DR RESENDEZ SPOKE WITH DR FOOTE REGARDING URGENCY OF THORACENTESIS. PROCEDURE WILL BE ORDERED FOR SATURDAY. NOTIFIED PATIENT'S NURSE HAYLEE.
--- NOTE | 2020-07-22 11:29 | NUR ---
SPOKE WITH DR. SANTILLAN ON THE PHONE, NOTIFIED HIM OF RADIOLOGISTS QUESTIONS OF WHEN TO DO THORACENTESIS. PER , IT IS UP TO THE RADIOLOGIST WHEN THEY WANT TO DO IT. SPOKE WITH LUPE SHEN, SHE STATES THAT THEY WILL WAIT UNTIL SATURDAY TO COMPLETE THORACENTESIS.
[2020-07-22 12:14] VITALS: BP 97/67
[2020-07-22 16:55] VITALS: BP 99/65
--- NOTE | 2020-07-22 18:59 | NUR ---
PT SITTING UP IN BED, A/O X4, BREATHING E/U ON RA. IN NO ACUTE DISTRESS AT THIS TIME. PT REQUESTING AN IPHONE TOE STAPLER, WE DO NOT HAVE ANY AVAILABLE ON UNIT. PT REPORTS NO PAIN/SOB AT THIS TIME. IV TO PATENT, CDI. NO FURTHER CONCERNS VOICED AT THIS TIME. BED IN LOWEST POSITION, CALL LIGHT IN REACH.
--- NOTE | 2020-07-22 19:35 | NUR ---
RECIEVED PT FROM AM RN. PT IN BED RESTING. A/O X4 WITH PARTIAL BLINDNESS NOTED. TELE #32 ATTACHED, S1/S2 HEARD, WITH COMPLAINTS OF CHEST PAIN, PACEMAKER INTACT 100% PACED. PULSES PALPABLE & STRONG JONATHAN, WEAK BLE. EDEMA 1+ NOTED BLE WITH BLUE DISCOLORATION NOTED. DIMINSHED BREATH SOUNDS BASES, CLEAR BREATH SOUNDS BILATERAL UPPER LOBES. CURRENTLY ON 2L NC TOLERATING WELL, BREATHING E/U, TOLERATING WELL. BOWEL SOUNDS ACTIVE WITH SLIGHTLY DISTENDED ABDOMEN. PT IS BED BOUND WITH BEDPAN BY BEDSIDE & BEDSIDE URINAL. SALINE LOCKED LEFT HAND 24 GAUGE, IV PATENT & INTACT. WILL CONTINUE TO MONITOR & CALL LIGHT WITHIN REACH & BED IN LOWEST POSITION.
[2020-07-22 21:16] VITALS: BP 101/68
[2020-07-23 05:44] VITALS: BP 100/97
[2020-07-23 06:16] LABS: BASOPHIL % 0.5 % (0.2-1.5)
--- NOTE | 2020-07-23 06:21 | NUR ---
PT IN BED RESTING AND REMAINED STABLE THROUGHOUT THE NIGHT WITH NO COMPLAINTS. ALL NEEDS WERE ATTENDED TOO NEEDED. A/OX4, CURRENTLY ON 2L NC TOLERATING WELL WITH NO COMPLAINTS SOB & BREATHING E/U. ON TELE # 32 WITH PACEMAKER INTACT TO LEFT UPPER CHEST 100% PACED. IV TO LEFT HAND 24 GAGUE INTACT & PATENT. WILL ENDORSE CARE TO AM RN & CONTINUE TO MONITOR. CALL LIGHT WITHIN REACH & BED IN LOWEST POSITION.
[2020-07-23 07:00] LABS: CALCIUM 8.9 mg/dL (8.5-10.1); CARBON DIOXIDE 17.4 mmol/L (21-32); CHLORIDE SERUM 105 mmol/L (98-107); GFR1 > 60 mL/min; GLUCOSE SERUM 82 mg/dL (74-106); MAGNESIUM 2.2 mg/dL (1.8-2.4); POTASSIUM SERUM 4.5 mmol/L (3.5-5.1); SODIUM SERUM 138 mmol/L (136-145)
[2020-07-23 07:21] LABS: PLATELET COUNT 126 x10^3mcL (152-348); RED CELL DISTRIBUTION WIDTH 16.8 % (12.1-16.2)
[2020-07-23 08:25] VITALS: BP 98/66
[2020-07-23 09:42] VITALS: BP 101/75
[2020-07-23 12:11] VITALS: BP 118/81
[2020-07-23 16:56] VITALS: BP 101/71
--- NOTE | 2020-07-23 19:05 | NUR ---
PT. REPORT RECIEVED FROM DAY SHIFT NURSE, PT. RESTING IN BED, EASILY AROUSABLE, A&OX4, RR EVEN AND UNLABORED ON 2L NC, CHEST RISE SYMT, TELE 32 PACED ON DEMAND, LT HAND IV INTACT AND WNL, BED IN LOWEST POSITION, CALL LIGHT WITHIN REACH, SR UPX2, WILL CONT TO MONITOR.
[2020-07-23 19:51] VITALS: BP 100/69
--- NOTE | 2020-07-24 03:30 | NUR ---
PT. RESTING IN BED W/ EYES CLOSED, NO ACUTE CHANGE/ DISTRESS NOTED, ALL SAFETY MEASURES IN PLACE, WILL CONT TO MONITOR.
--- NOTE | 2020-07-24 04:52 | NUR ---
DRYWALL BOARDHANGER INFORMED ME THAT PATIENT IS REFUSING BLOOD DRAW THIS AM,INFORMED PRIMARY RN TO TALK TO PATIENT
[2020-07-24 04:58] VITALS: BP 96/61
--- NOTE | 2020-07-24 05:00 | NUR ---
WAS INFORMED THAT PT. WAS REFUSING BLOOD DRAW, TALKED TO PT. PER PT. HE NEEDED TO DRINK WATER TO BE HYDRATED SO IT CAN BE EASY FOR LAB TO DRAW BLOOD BECAUSE HIS VIENS BECOME VISIBLE, LAB NOTIFIED STATED THAT THEY WILL ATEMPT TO DRAW BLOOD AGAIN FROM PT.
--- NOTE | 2020-07-24 06:43 | NUR ---
PT. RESTING IN BED, WATER PITCHER AND URINAL AT TABLESIDE SO PT. WILL BE ABLE TO REACH SINCE HE IS PARTIAL BLIND, ALL SAFETY MEASURES IN PLACE, NO ACUTE CHANGE/ DISTRESS NOTED, WILL ENDORSE TO DAY SHIFT NURSE.
--- NOTE | 2020-07-24 07:30 | NUR ---
RECEIVED PT FROM MAST MAKER NURSE. TELE#32, PACED. PT IS A/O X4, BREATHING E/U ON 2 L NC. IN NO ACUTE RESP DISTRESS. PT IS COMPLAINING OF A DRY COUGH. DENIES SOB AT THIS TIME. GEN WEAKNESS NOTED, PT VOIDS WITH URINAL AND BED CHEN. BLE DISCOLORATION NOTED. PT REPORTS NO PAIN AT THIS TIME. IV TO L HAND PATENT, CDI, SL. PT AWARE OF THORACENTESIS SCHEDULED FOR TOMORROW. NO FURTHER CONCERNS VOICED AT THIS TIME. BED IN LOWEST POSITION, CALL LIGHT IN REACH.
[2020-07-24 08:00] VITALS: BP 92/63
[2020-07-24 11:48] VITALS: BP 106/68
[2020-07-24 17:00] VITALS: BP 163/61; BP 97/68
[2020-07-24 18:25] LABS: CALCIUM 9.3 mg/dL (8.5-10.1); CARBON DIOXIDE 26.5 mmol/L (21-32); CHLORIDE SERUM 103 mmol/L (98-107); GFR1 > 60 mL/min; GLUCOSE SERUM 90 mg/dL (74-106); MAGNESIUM 2.2 mg/dL (1.8-2.4); POTASSIUM SERUM 4.1 mmol/L (3.5-5.1); SODIUM SERUM 135 mmol/L (136-145)
--- NOTE | 2020-07-24 18:39 | NUR ---
PT SITTING UP IN BED LISTENING TO PRAYER, A/O X4, BREATHING E/U ON RA. IN NO ACUTE DISTRESS AT THIS TIME. PT REPORT NO PAIN OR SOB AT THIS TIME. BED IN LOWEST POSITION, CALL LIGHT IN REACH.
--- NOTE | 2020-07-24 19:30 | NUR ---
RECIEVED PT FROM AM RN, PT IN BED AWAKE. HAS NO CONCERNS OR COMLAINTS AT THIS TIME. PT IS A/O X4 BUT IS PARTIALLY BLIND.CURRENTLY ON TELE #32 HE HAS A PACEMAKER TO LEFT SIDE OF HIS CHEST & HE IS 100% PACED WITH NO COMPLAINTS OF CHEST PAIN. PULSES PALPABLE & STRONG BUE/BLE, NO EDEMA NOTED. LUNG SOUNDS DIMINISHED AND CURRENTLY ON 2L NC TOLERATING WELL, BREATHING E/U, AND NO SOB NOTED. BOWEL SOUNDS ACTIVE, & PT HAS NON DISTENDED ABDOMEN. PT VOIDS USING URINAL AT BEDSIDE & IS ON BED REST. PT SKIN IS WARM DRY & INTACT WITH BLUE DISCOLORATION TO BLE. SALINE LOCK IV TO LEFT HAND 24 GAGUE, INTACT & PATENT. EDUCATED PT ON USING CALL LIGHT, WILL CONTINUE TO MONITOR. CALL LIGHT WITHIN REACH & BED IN LOWEST POSITION.
[2020-07-24 19:58] VITALS: BP 91/63
[2020-07-25 05:12] VITALS: BP 101/68
--- NOTE | 2020-07-25 06:30 | NUR ---
PT WAS STABLE THROUGHOUT THE NIGHT, CURRENTLY IN BED RESTING AND HAS NO COMPLAINTS. ALL NEEDS WERE ATTENDED TOO. PT SHOULD BE GETTING THORACENTESIS TODAY, AM RN AWARE AND WILL BE GIVING CARE. CALL LIGHT WITHIN NREACH & BED IN LOWEST POSITION.
--- NOTE | 2020-07-25 07:10 | NUR ---
Pt is awake and speaking in complete sentences. Pt denies chest pain. Pt states that he is blind and cannot see me. Pt is preparing for a procedure at bedside. Safety will be maintained with upper siderails up, bed in low positon, wheels are locked and call light is with in reach. Will continue to monitor and assess as needed.
[2020-07-25 08:39] VITALS: BP 93/66
[2020-07-25 10:32] LABS: PLATELET COUNT 137 x10^3mcL (130-400); RED CELL DISTRIBUTION WIDTH 17.3 % (11.5-14.5)
[2020-07-25 10:33] LABS: BASOPHIL % 0 % (0-2)
[2020-07-25 13:08] VITALS: BP 93/56
[2020-07-25 17:27] VITALS: BP 107/73
--- NOTE | 2020-07-25 19:44 | NUR ---
PATIENT LYING SUPINE SEMI PUENTE POSITION. RESTING WITH EYES CLOSED. AWAKE UPON VERBAL COMMANDS. A/O X4. LEGALLY BLIND. TELE#32: PACED. DIMINISHED LUNG SOUND THROUGH OUT. SHALLOW BREATHING. PATIENT STATED HE COULD NOT BREATH DEEP SINCE IT WOULD CAUSE PAIN. VOIDS IN THE URINAL (275ML). GENERALIZED WEAKNESS. BLE SKIN DISCOLORATION (BROWN): ABOVE FEET AND BELOW KNEE. DRESSING ON THE RIGHT BACK DRY ANDINTACT. STATED PAIN 7/10 AT THE RIGHT CHEST. WILL MEDICATE FOR PAIN PER EMAR. IV @ LFA 22G PATENT AND INTACT. BED AT THE LOWEST POSITION. CALL LIGHT WITHIN REACH. URINAL, PHONE, WATER PITCHER WITHIN REACH. WILL CONTINUE TO MONITOR.
[2020-07-25 20:35] VITALS: BP 99/67
[2020-07-26 05:03] VITALS: BP 96/59
--- NOTE | 2020-07-26 06:31 | NUR ---
PATIENT WAS COMPLAINING ABOUT HOW THE DOCTOR TOOK OUT 2 L FLUID FROM THORACENTASIS AND MADE HIM HYPOTENSIVE. HE TALKED TO HIS FRIENDS VIA THE PHONE AND MIGHT FILE A COMPLAINT ABOUT THIS MATTER. DURING SHIFT, HE ATTEMPTED TO CALL TO THE [facility] IN ORDER TO TALK TO PRESIDENT ANDRAE CHAIREZ AN ATTEMPT TO MAKE THIS HOSPITAL TO BE A PUBLIC HOSP[facility]. NURSE HEARD THIS WHEN HE WAS OUTSIDE PREPING FOR HIS MEDICATION. PATIENT WAS BLIND, SO LONG HE WAS EXPLAINED WHAT TO BE EXPECTED, HE MOST LIKELY AGREED AND COOPERATIVE. WILL ENDORSE THIS TO THE INCOMING NURSE.
--- NOTE | 2020-07-26 07:00 | NUR ---
Pt is awake and speaking in complete sentences. Pt states that he was unable to get any sleep because his roommated yelled all night. Pt denies chest pain and is on the phone with his ministry praying. Pt is AOX4 and resting in bed. Safety will be maintained with upper siderails up, bed in low position, wheels locked and non-slip socks on. Call light is within reach. Will continue to monitor and assess as needed.
[2020-07-26 08:47] VITALS: BP 117/52
[2020-07-26 11:58] VITALS: BP 103/70
[2020-07-26 14:12] VITALS: BP 103/70
--- NOTE | 2020-07-26 15:06 | NUR ---
Pt is in stable condition and being discharged at this time. Pt's roommate, Reza picked him up. Discharge instructions were verbalized and understood.
== END 2020-07-26 15:02 | disposition home or self-care (01) | DRG 194 ==
LOC: ED 11:48 → DU 15:46
PROVIDERS: Specialist; ADMIT Internal Medicine; ATTEND Internal Medicine
PROC: 0W993ZZ Drainage of Right Pleural Cavity, Percutaneous Approach (ICD-10-PCS; principal; 2020-07-25)
DX: I11.0 Hypertensive heart disease with heart failure (principal); J44.9 Chronic obstructive pulmonary disease, unspecified; E11.9 Type 2 diabetes mellitus without complications; I25.10 Atherosclerotic heart disease of native coronary artery without angina pectoris; Z20.822 Contact with and (suspected) exposure to COVID-19; H54.8 Legal blindness, as defined in USA; I50.23 Acute on chronic systolic (congestive) heart failure; I25.5 Ischemic cardiomyopathy; Z95.0 Presence of cardiac pacemaker; Z88.8 Allergy status to other drugs, medicaments and biological substances; Z88.0 Allergy status to penicillin
CPT/HCPCS: 32555; 82962; 83880; 84439; C1729; G0378; J1650; J1940; U0003